=== PATIENT | male | born 1970 | race Caucasian/White ===

== ENCOUNTER 2018-12-20 15:10 | Inpatient (IN) | payer MEDICAID ==
[~2018-12-20] VITALS: Ht 172.7 cm; Wt 93.5 kg
[2018-12-20 15:52] LABS: Basophils # (auto) 0.2 uL; Basophils % (auto) 2.5 % (0.0-2.0); Eosinophils # (auto) 0.1 uL; Eosinophils % (auto) 0.8 % (0.0-7.0); Hematocrit 42.9 % (41.0-53.0); Hemoglobin 14.3 g/dL (13.5-17.5); Lymphocytes # (auto) 1.3 uL; Lymphocytes % (auto) 15.6 % (10.0-50.0); Mean Corpuscular Hemoglobin 29.1 pg (28.0-32.0); Mean Corpuscular Hgb Conc. 33.3 g/dL (32.0-36.0); Mean Corpuscular Volume 87.6 fL (80.0-100.0); Monocytes # (auto) 0.7 uL; Monocytes % (auto) 8.2 % (0.0-12.0); Neutrophils % (auto) 72.9 % (37.0-80.0); Platelet Count (auto) 201 10^3/uL (140-450); Red Blood Cells 4.89 10^6/uL (4.5-5.90); Red Cell Distribution Width 15.1 % (11.8-14.3); White Blood Cell 8.2 10^3/uL (4.4-10.8)
[2018-12-20 16:08] LABS: BUN/Creatinine Ratio 15.9; Calcium 8.4 mg/dL (8.5-10.1); Potassium 4.3 mmol/L (3.5-5.1)
[2018-12-20 16:13] LABS: Bilirubin, Total 1.6 mg/dL (0.2-1.0); Total Protein 5.9 g/dL (6.4-8.2)
[2018-12-20 16:16] LABS: INR 1.35 (0.9-1.15); Partial Thromboplastin Time 26.7 sec (23.64-32.05)
[2018-12-20] MEDS ORDERED: cloNIDine HCL 0.1 MG TAB PO ONE (16:30)
[2018-12-20] MEDS ORDERED: SODIUM CHLORIDE 0.9% 1,000 ML IV ONE (16:59)
[2018-12-20] MEDS ORDERED: SPIRONOLACTONE 25 MG TAB PO ONE (17:00)
[2018-12-20] MEDS ORDERED: FUROSEMIDE 40 MG/4 ML VIAL IV ONE (17:00)
[2018-12-20] MEDS ORDERED: FUROSEMIDE 100 MG/10ML VIAL IV ONE (19:00)
[2018-12-20] MEDS ORDERED: LABETALOL HCL 5 MG/ML ML 20ML VIAL IV ONE (20:45)
[2018-12-20] MEDS ORDERED: ONDANSETRON HCL 4 MG/2 ML VIAL IV PRN (21:15)
[2018-12-20] MEDS ORDERED: ACETAMINOPHEN 325 MG TAB PO PRN (21:15)
[2018-12-20] MEDS: FAMOTIDINE 20 MG TAB PO SCH (22:00)
[2018-12-20] MEDS: CARVEDILOL 3.125 MG TAB PO SCH (22:00)
[2018-12-20] MEDS: ATORVASTATIN 20 MG TAB PO SCH (22:00)
[2018-12-20] MEDS ORDERED: MORPHINE SULF INJ 2 MG/ML SYRINGE 1ML IV PRN (22:15)
[2018-12-20] MEDS ORDERED: NITROGLYCERIN 0.4 MG SL TAB SL PRN (22:15)
[2018-12-20 23:32] VITALS: BP 149/102
--- NOTE | 2018-12-20 23:32 | NUR ---
Telemetry admit from ER JOHNMARVIN admitted to Telemetry unit. Patient oriented to MAGGIE BRADLEY RN primary RN, unit telemetry, room 296, bed A, and unit policies regarding patient care and visiting hours. Patient now on continuous telemetry monitoring, tele box #[id number] and telemetry reading on arrival to unit is normal sinus rhythm in the 80s. Patient placed on bedside oxygen, weighed by bedscale and encouraged to call if they need something. All questions and concerns addressed, patient verbalized understanding.
--- NOTE | 2018-12-20 23:50 | NUR ---
Patient refused denney catheter insertion that was ordered for accurate output monitoring. Gave patient a urinal and explained the importance of accurate monitoring of urine output. Patient verbalized understanding. Notified LICENSED REACTOR OPERATOR of necessity for patient to use of urinal for accurate urine output monitoring. Will notify MD of patient's refusal for denney catheter insertion.
[2018-12-21 04:42] LABS: Basophils # (auto) 0.2 uL; Basophils % (auto) 3.2 % (0.0-2.0); Eosinophils # (auto) 0.2 uL; Eosinophils % (auto) 2.8 % (0.0-7.0); Hematocrit 42.4 % (41.0-53.0); Hemoglobin 14.4 g/dL (13.5-17.5); Lymphocytes # (auto) 1.3 uL; Lymphocytes % (auto) 17.8 % (10.0-50.0); Mean Corpuscular Hemoglobin 29.6 pg (28.0-32.0); Mean Corpuscular Hgb Conc. 33.9 g/dL (32.0-36.0); Mean Corpuscular Volume 87.2 fL (80.0-100.0); Monocytes # (auto) 0.8 uL; Monocytes % (auto) 10.7 % (0.0-12.0); Neutrophils # (auto) 4.9 uL; Neutrophils % (auto) 65.5 % (37.0-80.0); Nucleated Red Blood Cells % 0.1 %; Platelet Count (auto) 187 10^3/uL (140-450); Red Blood Cells 4.86 10^6/uL (4.5-5.90); White Blood Cell 7.5 10^3/uL (4.4-10.8)
[2018-12-21 05:00] VITALS: BP 149/103
[2018-12-21 05:08] LABS: Calcium 8.2 mg/dL (8.5-10.1)
[2018-12-21 05:10] LABS: BUN/Creatinine Ratio 16.6
[2018-12-21] MEDS ORDERED: FUROSEMIDE 20 MG/2 ML VIAL IV SCH (06:00)
--- NOTE | 2018-12-21 07:30 | NUR ---
SHIFT CLOSING NOTE Endorsed care of patient to day shift, NEO Ivey.
--- NOTE | 2018-12-21 07:40 | NUR ---
Opening Shift Note Assumed care of patient, asleep but easily aroused. No S/S of distress/SOB or pain. Call light placed within reach and patient was instructed on POC and to call for assist PRN, will continue to monitor for changes Q1hr and PRN.
[2018-12-21 09:00] VITALS: BP 164/118
[2018-12-21] MEDS: CARVEDILOL 3.125 MG TAB PO SCH ×2 (09:24→21:28)
[2018-12-21] MEDS: FAMOTIDINE 20 MG TAB PO SCH ×2 (09:25→21:28)
[2018-12-21] MEDS: amLODIPine BESYLATE 5 MG TAB PO SCH (09:25)
[2018-12-21] MEDS: ASPirin 81 mg TAB PO SCH (09:25)
[2018-12-21] MEDS ORDERED: cloNIDine HCL 0.1 MG TAB PO PRN (10:30)
[2018-12-21] MEDS: FUROSEMIDE 20 MG/2 ML VIAL IV SCH ×2 (10:49→17:59)
--- NOTE | 2018-12-21 10:57 | NUR ---
AMA - smoke Patient signed AMA to go smoke.
--- NOTE | 2018-12-21 11:25 | NUR ---
On Unit Patient brought back to unit in wheelchair. States that he felt nauseous as he walked downstairs and it kept getting worst, he kept walking to see if it would go away but it didn't so he found a stone to sit on.
[2018-12-21 12:46] LABS: Alcohol, Urine < 3.0 mg/dL (0-5); Amphetamine Screen, Urine POSITIVE (NEGATIVE); Barbiturate Scree,Urine NEGATIVE (NEGATIVE); Benzodiazephine Screen, Urine NEGATIVE (NEGATIVE); Cannabinoid Screen, Urine POSITIVE (NEGATIVE); Cocaine Screen, Urine NEGATIVE (NEGATIVE); Opiate Scree,Urine NEGATIVE (NEGATIVE); Phencyclidine Screen, Urine NEGATIVE (NEGATIVE)
[2018-12-21 13:00] VITALS: BP 155/114
[2018-12-21 13:00] LABS: Urine Bacteria NONE SEEN /hpf (None Seen); Urine Blood Negative /uL (Negative); Urine Specific Gravity 1.007 (1.001-1.035); Urine WBC 125 /hpf (0 - 3); Urine WBC Clumps PRESENT /hpf (None Seen)
[2018-12-21] MEDS: LABETALOL HCL 5 MG/ML ML 20ML VIAL IV PRN (14:39)
[2018-12-21 16:54] VITALS: BP 165/117
[2018-12-21] MEDS: cloNIDine HCL 0.1 MG TAB PO PRN (18:04)
--- NOTE | 2018-12-21 19:24 | NUR ---
Opening Shift Note Assumed care of patient, awake and alert. No S/S of distress/SOB or pain. Instructed on POC and to call for assist PRN, will continue to monitor for changes Q1hr and PRN.
[2018-12-21] MEDS: ATORVASTATIN 20 MG TAB PO SCH (21:26)
[2018-12-21 22:00] VITALS: BP 147/119
[2018-12-21 22:28] VITALS: BP 159/108
--- NOTE | 2018-12-21 23:30 | NUR ---
Rounds Patient sleeping. No S/S of distress/SOB or pain. Will continue to monitor changes q1hr and PRN.
--- NOTE | 2018-12-22 03:30 | NUR ---
Rounds Patient sleeping. No S/S of distress/SOB or pain. Will continue to monitor changes q1hr and PRN.
[2018-12-22 05:23] VITALS: BP 161/96
[2018-12-22] MEDS: FUROSEMIDE 20 MG/2 ML VIAL IV SCH ×2 (06:26→17:48)
[2018-12-22 06:30] LABS: Basophils # (auto) 0.2 uL; Basophils % (auto) 2.9 % (0.0-2.0); Eosinophils # (auto) 0.2 uL; Eosinophils % (auto) 2.7 % (0.0-7.0); Lymphocytes # (auto) 1.4 uL; Lymphocytes % (auto) 17.5 % (10.0-50.0); Mean Corpuscular Hemoglobin 29.6 pg (28.0-32.0); Mean Corpuscular Volume 86.8 fL (80.0-100.0); Monocytes # (auto) 0.7 uL; Monocytes % (auto) 8.5 % (0.0-12.0); Neutrophils # (auto) 5.4 uL; Neutrophils % (auto) 68.4 % (37.0-80.0); Platelet Count (auto) 174 10^3/uL (140-450); Red Blood Cells 5.07 10^6/uL (4.5-5.90); Red Cell Distribution Width 15.3 % (11.8-14.3); White Blood Cell 7.8 10^3/uL (4.4-10.8)
[2018-12-22 06:33] LABS: Albumin 2.7 g/dL (3.4-5.0); BUN/Creatinine Ratio 20.1; Calcium 8.1 mg/dL (8.5-10.1); Magnesium 1.7 mg/dL (1.6-2.6)
[2018-12-22 06:36] LABS: Bilirubin, Total 1.4 mg/dL (0.2-1.0); Total Protein 5.6 g/dL (6.4-8.2)
--- NOTE | 2018-12-22 07:30 | NUR ---
SHIFT CLOSING NOTE. ENDORSED CARE OF PATIENT TO DAY SHIFT, NEO DOSS.
[2018-12-22] MEDS ORDERED: ADENOSINE 79 MG in GIVE UN-DILUTED 0 ML IV STA (08:23)
[2018-12-22 09:00] VITALS: BP 168/119
[2018-12-22] MEDS: FAMOTIDINE 20 MG TAB PO SCH ×2 (10:16→22:28)
[2018-12-22] MEDS: ASPirin 81 mg TAB PO SCH (10:16)
[2018-12-22] MEDS: CARVEDILOL 3.125 MG TAB PO SCH ×2 (10:17→22:30)
[2018-12-22] MEDS: amLODIPine BESYLATE 5 MG TAB PO SCH (10:17)
[2018-12-22] MEDS: cloNIDine HCL 0.1 MG TAB PO PRN (12:45)
[2018-12-22 13:00] VITALS: BP 171/97
[2018-12-22] MEDS ORDERED: hydrALAZINE HCL 20 MG/ML VL IV PRN (13:45)
[2018-12-22] MEDS ORDERED: CARVEDILOL 3.125 MG TAB PO ONE (14:00)
[2018-12-22] MEDS ORDERED: SACUBITRIL-VALSARTAN 24mg/26mg TAB PO ONE (14:00)
[2018-12-22 16:46] VITALS: BP 161/111
[2018-12-22] MEDS: IPRATROPIUM BROM 0.5 MG/2.5ML INH SOL NEB SCH ×2 (19:57→23:07)
[2018-12-22] MEDS: ALBUTEROL SULF 2.5 MG/0.5ML(0.5%) NEB SOLN NEB SCH ×2 (19:57→23:07)
[2018-12-22 22:28] VITALS: BP 145/100
[2018-12-22] MEDS: ATORVASTATIN 20 MG TAB PO SCH (22:29)
[2018-12-22] MEDS: SACUBITRIL-VALSARTAN 24mg/26mg TAB PO SCH (22:29)
[2018-12-22 23:16] VITALS: BP 145/100
--- NOTE | 2018-12-23 | NUR ---
Rounds Patient awake and alert. No S/S of distress/SOB or pain. Will continue to monitor changes q1hr and PRN.
[2018-12-23] MEDS: IPRATROPIUM BROM 0.5 MG/2.5ML INH SOL NEB SCH ×6 (02:00→22:00)
[2018-12-23] MEDS: ALBUTEROL SULF 2.5 MG/0.5ML(0.5%) NEB SOLN NEB SCH ×6 (02:00→22:00)
--- NOTE | 2018-12-23 04:11 | NUR ---
Rounds Patient sleeping. No S/S of distress/SOB or pain. Will continue to monitor changes q1hr and PRN.
[2018-12-23 05:13] VITALS: BP 141/89
[2018-12-23] MEDS: FUROSEMIDE 20 MG/2 ML VIAL IV SCH ×2 (05:52→17:44)
[2018-12-23 06:17] LABS: Basophils # (auto) 0.1 uL; Eosinophils # (auto) 0.3 uL; Eosinophils % (auto) 4.7 % (0.0-7.0); Hematocrit 44.9 % (41.0-53.0); Hemoglobin 14.9 g/dL (13.5-17.5); Lymphocytes # (auto) 1.8 uL; Mean Corpuscular Hemoglobin 29.6 pg (28.0-32.0); Mean Corpuscular Hgb Conc. 33.2 g/dL (32.0-36.0); Monocytes # (auto) 0.6 uL; Monocytes % (auto) 8.5 % (0.0-12.0); Neutrophils # (auto) 4.1 uL; Neutrophils % (auto) 59.8 % (37.0-80.0); Nucleated Red Blood Cells % 0.1 %; Platelet Count (auto) 179 10^3/uL (140-450); Red Blood Cells 5.04 10^6/uL (4.5-5.90); Red Cell Distribution Width 15.3 % (11.8-14.3); White Blood Cell 6.9 10^3/uL (4.4-10.8)
[2018-12-23 06:43] LABS: Potassium 3.7 mmol/L (3.5-5.1)
[2018-12-23 06:52] LABS: Albumin 2.4 g/dL (3.4-5.0); BUN/Creatinine Ratio 22.4; Calcium 7.5 mg/dL (8.5-10.1); Magnesium 1.8 mg/dL (1.6-2.6)
[2018-12-23 06:54] LABS: Bilirubin, Total 1.1 mg/dL (0.2-1.0); Total Protein 5.1 g/dL (6.4-8.2)
--- NOTE | 2018-12-23 07:38 | NUR ---
SHIFT CLOSING NOTE ENDORSED CARE OF PATIENT TO DAY SHIFT, NEO PETERSON.
--- NOTE | 2018-12-23 07:50 | NUR ---
OPENING SHIFT NOTE ASSUMED CARE OF PATIENT. PATIENT AWAKE AND ALERT SITTING UP IN BED. NO S/S OF DISTRESS OR SOB NOTED. BED IN LOWEST LOCKED POSITION, CALL LIGHT WITHIN REACH. REVIEWED POC WITH PATIENT AND INSTRUCTED TO CALL FOR ASSIST NEEDED. WILL CONTINUE TO MONITOR.
[2018-12-23 09:00] VITALS: BP 148/92
[2018-12-23] MEDS: CARVEDILOL 3.125 MG TAB PO SCH ×2 (10:08→22:11)
[2018-12-23] MEDS: FAMOTIDINE 20 MG TAB PO SCH ×2 (10:09→22:11)
[2018-12-23] MEDS: amLODIPine BESYLATE 5 MG TAB PO SCH (10:09)
[2018-12-23] MEDS: SACUBITRIL-VALSARTAN 24mg/26mg TAB PO SCH ×2 (10:10→22:11)
[2018-12-23] MEDS: ASPirin 81 mg TAB PO SCH (10:11)
[2018-12-23 12:30] VITALS: BP 135/83
[2018-12-23 17:00] VITALS: BP 128/82
--- NOTE | 2018-12-23 20:46 | NUR ---
IV removal IV DC'd with clean sterile technique, catheter fully intact. Pressure dressing applied to site. Patient tolerated well. NOTE: PT STATED HE WANTS THE RIGHT AC IV OUT, IT IS HURTIING TOO MUCH.
[2018-12-23] MEDS: ATORVASTATIN 20 MG TAB PO SCH (22:11)
--- NOTE | 2018-12-23 22:42 | NUR ---
RT NOTE WOKE PT UP TO GIVE HIM 2200 BREATHING TX PT REFUSED. ASKED ME TO COME BACK FOR 0200 TX. NO RESP DISTRESS NOTED AT THIS TIME.
[2018-12-23 23:32] VITALS: BP 132/85
--- NOTE | 2018-12-24 | NUR ---
Transfer of care and report received from NEO Lee. Pt sleeping soundly; resps even without s/sx distress. Pt relaxed and had requested not to be awakened for MN POC BG. Color good. Cont on tele #[phone] in SR.
[2018-12-24] MEDS: ALBUTEROL SULF 2.5 MG/0.5ML(0.5%) NEB SOLN NEB SCH ×6 (02:00→22:00)
[2018-12-24] MEDS: IPRATROPIUM BROM 0.5 MG/2.5ML INH SOL NEB SCH ×6 (02:00→22:00)
--- NOTE | 2018-12-24 02:08 | NUR ---
RT NOTE WENT TO GIVE 0200 BREATHING TX PT WAS SLEEPING WOKE PT UP AND PT REFUSED BREATHING TREATMENT. NO DISTRESS NOTED PT SLEEPING COMFORTABLY
[2018-12-24 05:38] VITALS: BP 146/78
[2018-12-24] MEDS: FUROSEMIDE 20 MG/2 ML VIAL IV SCH (07:05)
--- NOTE | 2018-12-24 07:32 | NUR ---
OPENING SHIFT NOTE ASSUMED CARE OF PATIENT. PATIENT RESTING COMFORTABLY WITH EYES CLOSED. NO S/S OF DISTRESS OR SOB NOTED. BED IN LOWEST LOCKED POSITION, CALL LIGHT WITHIN REACH. WILL CONTINUE TO MONITOR.
[2018-12-24 07:36] LABS: BUN/Creatinine Ratio 27.6; Calcium 7.7 mg/dL (8.5-10.1); Potassium 3.7 mmol/L (3.5-5.1)
[2018-12-24 08:41] VITALS: BP 148/92
[2018-12-24] MEDS: CARVEDILOL 3.125 MG TAB PO SCH ×2 (09:48→21:34)
[2018-12-24] MEDS: FAMOTIDINE 20 MG TAB PO SCH ×2 (09:49→21:33)
[2018-12-24] MEDS: ASPirin 81 mg TAB PO SCH (09:49)
[2018-12-24] MEDS: amLODIPine BESYLATE 5 MG TAB PO SCH (09:49)
[2018-12-24] MEDS: SACUBITRIL-VALSARTAN 24mg/26mg TAB PO SCH ×2 (09:49→21:34)
[2018-12-24 13:00] VITALS: BP 136/84
[2018-12-24 17:00] VITALS: BP 132/66
--- NOTE | 2018-12-24 18:40 | NUR ---
END OF SHIFT NOTE PATIENT AWAKE AND ALERT SITTING UP IN BED. NO S/S OF DISTRESS OR SOB NOTED. BED IN LOWEST LOCKED POSITION, CALL LIGHT WITHIN REACH. WILL ENDORSE CARE TO NOC RN.
--- NOTE | 2018-12-24 19:21 | NUR ---
Respiratory note: PT REFUSING BREATHING TX AT THIS TIME. NO RESP DISTRESS NOTED. SPO2 ON RA 93%, HR 75, RR 20. BS DIM T/O. LET PT KNOW I WILL BE BACK TO GIVE 2200 TX AT THIS TIME.
--- NOTE | 2018-12-24 19:30 | NUR ---
Opening Shift Assumed care of patient, awake and alert. No S/S of distress/SOB or pain. Insructed on POC and to callfor assist PRN, will continue to monitor for changes Q1hr and PRN. Patient currently wearing life vest. Fall and safety precautions in place. Call light within reach.
--- NOTE | 2018-12-24 20:00 | NUR ---
CONSENTS Educated patient that in preparation for scheduled procedure tomorrow 12/25/18, patient will be NPO status at midnight and CHG bath and linen change will be done tomorrow morning approximately 0600. Patient verbalized understanding and agreement. Patient was asked if he understood risks and benefits of procedure and is comfortable signing consents at this time. Patient stated he is unaware of risks and benefits and requests to speak with MD. Consents not signed at this time. Will inform day shift RN. Will continue to monitor
[2018-12-24] MEDS: ATORVASTATIN 20 MG TAB PO SCH (21:33)
[2018-12-24] MEDS: TEMAZEPAM 15 MG CAP PO PRN (21:34)
--- NOTE | 2018-12-24 22:17 | NUR ---
Respiratory note: PT REFUSING BREATHING TX AT THIS TIME. NO RESP DISTRESS NOTED. SPO2 ON RA 92%, HR 82, RR 20. BS DIM T/O. LET PT KNOW I WILL BE BACK TO GIVE 0200 TX AT THAT TIME.
[2018-12-24 22:21] VITALS: BP 139/82
--- NOTE | 2018-12-25 | NUR ---
NPO Bedside table cleared of food and drink. Will continue to monitor
[2018-12-25] MEDS: IPRATROPIUM BROM 0.5 MG/2.5ML INH SOL NEB SCH ×7 (02:00→22:24)
[2018-12-25] MEDS: ALBUTEROL SULF 2.5 MG/0.5ML(0.5%) NEB SOLN NEB SCH ×7 (02:00→22:24)
--- NOTE | 2018-12-25 02:39 | NUR ---
Respiratory note: PT HAS REFUSED LAST MED NEB TX FOR TONIGHT. NO RESP DISTRESS NOTED. PT WANTS TO SLEEP. SPO2 ON RA 94%, HR 80, RR 20. BS DIM T/O. INFORMED PT TO CALL IF PT IS REQUIRING TX AT A LATER TIME. WILL CONTINUE TO MONITOR PT T/O SHIFT.
[2018-12-25 05:39] VITALS: BP 146/93
--- NOTE | 2018-12-25 06:00 | NUR ---
CHG Patient was instructed on how to wipe himself using CHG wipes and importance of using before procedure. Patient verbalized understanding and agreement. Patient ambulated himself with steady gait to restroom with CHG wipes. Complete linen change done and gown changed. Patient ambulated himself back to bed, no distress noted. Will continue to monitor
[2018-12-25 07:28] LABS: INR 1.19 (0.9-1.15)
[2018-12-25 07:33] LABS: Calcium 8.3 mg/dL (8.5-10.1); Potassium 4.2 mmol/L (3.5-5.1)
[2018-12-25 08:00] VITALS: BP 160/98
[2018-12-25 08:40] VITALS: BP 160/98
--- NOTE | 2018-12-25 09:30 | NUR ---
CALLED RECRUITING SPECIALIST TO FIND OUT WHAT TIME PATIENT IS GOING DOWN TO RECRUITING SPECIALIST. KRISTI BOBBY PATIENT IS GOING LATER THIS AFTERNOON AND CAN HAVE A LIGHT BREAKFAST. BREAKFAST ALREADY PAST SO PROVIDED PATIENT WITH JELLO X 2 AND HALF A CUP OF WATER WITH MORNING MEDICATIONS.
--- NOTE | 2018-12-25 09:34 | NUR ---
Opening Shift Note Assumed care of patient, awake and alert. No S/S of distress/SOB or pain. Instructed on POC and to call for assist PRN, will continue to monitor for changes Q1hr and PRN. Bed locked in lowest position with two side rails up and call light in reach.
[2018-12-25] MEDS: FAMOTIDINE 20 MG TAB PO SCH ×2 (09:52→21:44)
[2018-12-25] MEDS: FUROSEMIDE 20 MG/2 ML VIAL IV SCH (09:52)
[2018-12-25] MEDS: SACUBITRIL-VALSARTAN 24mg/26mg TAB PO SCH ×2 (09:52→21:49)
[2018-12-25] MEDS: amLODIPine BESYLATE 5 MG TAB PO SCH (09:52)
[2018-12-25] MEDS: CARVEDILOL 3.125 MG TAB PO SCH ×2 (09:53→21:46)
[2018-12-25] MEDS: ASPirin 81 mg TAB PO SCH (09:53)
[2018-12-25 11:24] LABS: Hepatitis B Surface Antibody Negative
[2018-12-25 11:54] LABS: Hepatitis A Total Antibody Negative
[2018-12-25 12:30] VITALS: BP 132/83
--- NOTE | 2018-12-25 12:30 | NUR ---
DR ROBERT JUARES
[2018-12-25 12:55] LABS: Hepatitis B Core Total AB Negative; Hepatitis B Surface Antigen Negative (Negative)
[2018-12-25 12:56] LABS: Hepatitis C Antibody Negative (Negative)
--- NOTE | 2018-12-25 13:30 | NUR ---
PATIENT TAKEN DOWN TO ENGINEERING CLERK.
--- NOTE | 2018-12-25 14:15 | NUR ---
Respiratory note: MED NEB TX NOT ADMINISTERED DUE TO PT BEING AT PROCEDURE.
[2018-12-25] MEDS ORDERED: LIDOCAINE 2%HCL (LOCAL ANESTH.) INJ 20ML MDV ONE (15:07)
[2018-12-25] MEDS ORDERED: ANGIOMAX 250 MG VIAL IV ONE (15:16)
[2018-12-25] MEDS ORDERED: MIDAZOLAM HCL 1MG/1ML-2 ML VIAL ONE (15:16)
[2018-12-25] MEDS ORDERED: SODIUM CHL 0.9% 50 ML ONE (15:16)
[2018-12-25] MEDS ORDERED: fentaNYL CITRATE 100 MCG/2 ML VL ONE (15:16)
[2018-12-25] MEDS ORDERED: IOHEXOL 350 MG/ML 100ML IJ ONE ×2 (15:17→16:25)
[2018-12-25] MEDS ORDERED: CLOPIDOGREL 300 MG TAB ONE (16:40)
[2018-12-25] MEDS ORDERED: LABETALOL HCL 5 MG/ML ML 20ML VIAL IV ONE (16:50)
[2018-12-25] MEDS ORDERED: ONDANSETRON HCL 4 MG/2 ML VIAL ONE (16:57)
[2018-12-25] MEDS: LABETALOL HCL 5 MG/ML ML 20ML VIAL IV PRN (17:16)
--- NOTE | 2018-12-25 17:33 | NUR ---
RECEIVED REPORT FROM ANTHONY NATHAN WILL AWAIT PATIENT.
--- NOTE | 2018-12-25 17:35 | NUR ---
RECEIVED PATIENT TO THE FLOOR NO SIGNS AND SYMPTOMS OF DISTRESS NOTED. PATIENT DRESSING C/D/I. PATIENT PLACED IN [place] TO ACCOMMODATE EATING. PATIENT EDUCATED ON THE NEED TO LAY FLAT. PER JAC IN CANDY SEPARATOR HARD PATIENT HAS AN UPTIME OF 1900
--- NOTE | 2018-12-25 18:34 | NUR ---
PER DR JONES GET A LIST OF HOME MEDICATIONS FOR TOMORROWS DISCHARGE.
--- NOTE | 2018-12-25 18:37 | NUR ---
PATIENTS INCISION SITE STILL C/D/I PER PATIENT HE DOES NOT TAKE ANY HOME MEDICATIONS.
--- NOTE | 2018-12-25 19:30 | NUR ---
Opening Shift Assumed care of patient, awake and alert. No S/S of distress/SOB or pain. Insructed on POC and to callfor assist PRN, will continue to monitor for changes Q1hr and PRN. Fall and safety precautions in place. Call light within reach.
--- NOTE | 2018-12-25 20:00 | NUR ---
RIGHT GROIN Per day shift report, patient able to sit up at 90 degree angle at 1900. Upon entering room, found patient sitting up in bed, no distress noted. Dressing to right groin assessed. Pressure dressing to right groin clean, dry, and intact. No signs of hematoma noted upon palpation, no bruising noted around site. Patient denies pain to site. Will continue to monitor
[2018-12-25] MEDS: ATORVASTATIN 20 MG TAB PO SCH (21:45)
[2018-12-25] MEDS: TEMAZEPAM 15 MG CAP PO PRN (21:46)
--- NOTE | 2018-12-25 22:00 | NUR ---
RIGHT GROIN Assessed right groin at this time. Pressure dressing in place, clean, dry, and intact. No signs hematoma noted upon palpation, no bruising noted around site. Instructed patient to self-massage around site to prevent complications/hematoma. Patient verbalized understanding of teaching and returned demonstration. Right posterior tibialis pulse present, 2+, lower extremity warm and dry to touch. Patient denies pain at this time. No distress noted. Will continue to monitor
[2018-12-25 23:06] VITALS: BP 155/112
[2018-12-26] MEDS: IPRATROPIUM BROM 0.5 MG/2.5ML INH SOL NEB SCH ×4 (02:05→14:00)
[2018-12-26] MEDS: ALBUTEROL SULF 2.5 MG/0.5ML(0.5%) NEB SOLN NEB SCH ×4 (02:05→14:00)
[2018-12-26 03:23] VITALS: BP 155/112
[2018-12-26 05:39] VITALS: BP 139/84
--- NOTE | 2018-12-26 05:40 | NUR ---
RIGHT GROIN/PAIN Assessed right groin at this time. Pressure dressing in place, clean, dry, and intact. No signs hematoma noted upon palpation, no bruising noted around site. Instructed patient to self-massage around site to prevent complications/hematoma. Patient verbalized understanding of teaching and returned demonstration. Right posterior tibialis pulse present, 2+, lower extremity warm and dry to touch. Patient complaining of pain 9/10 to right groin, medicated with PRN pain medication (see emar) and given hot pack. Will continue to monitor
[2018-12-26 08:00] VITALS: BP 157/105
[2018-12-26 08:30] VITALS: BP 153/102
[2018-12-26] MEDS: FUROSEMIDE 20 MG/2 ML VIAL IV SCH (09:48)
[2018-12-26] MEDS: FAMOTIDINE 20 MG TAB PO SCH (09:50)
[2018-12-26] MEDS: ASPirin 81 mg TAB PO SCH (09:50)
[2018-12-26] MEDS: SACUBITRIL-VALSARTAN 24mg/26mg TAB PO SCH (09:50)
[2018-12-26] MEDS: CARVEDILOL 3.125 MG TAB PO SCH (09:50)
[2018-12-26] MEDS: amLODIPine BESYLATE 5 MG TAB PO SCH (09:50)
[2018-12-26] MEDS ORDERED: CLOPIDOGREL BISULFATE 75 MG TAB PO SCH (10:00)
--- NOTE | 2018-12-26 12:23 | NUR ---
D/C Planning Per consult for safety evaluation, medication management and help with accessing food. Contacted and faxed medical records to [facility] and [facility]. Per Lucero from [facility] Ph:) Fax:) Pt has been accepted and service to start within 48hrs upon d/c day. Advised Systems Administration Analyst Christine for authorization. Addendum: 12/26/18 at 1231 by JACQUES FLOWERS Amended: Links added.
[2018-12-26 12:30] VITALS: BP 150/73
[2018-12-26] MEDS ORDERED: CLOP75TA28 PO (12:49)
[2018-12-26] MEDS ORDERED: AML5T PO (12:49)
[2018-12-26] MEDS ORDERED: LOSA-69 PO (12:49)
[2018-12-26] MEDS ORDERED: ASPI81CH43 PO (12:49)
[2018-12-26] MEDS ORDERED: ATOR20TA50 PO (12:49)
[2018-12-26] MEDS ORDERED: CAR3125T PO (12:49)
[2018-12-26] MEDS ORDERED: LEVO25TA6 PO (12:52)
--- NOTE | 2018-12-26 12:52 | NUR ---
Estimated needs based on AJBW 75.9 kg-weight maintenance factors 6677-8172 kcal (23-25 kcal/kg) 79-91 g protein (1.0-1.2 g/kg) Addendum: 12/26/18 at [address] Amended: Links added.
--- NOTE | 2018-12-26 13:12 | NUR ---
I faxed home health order to [employer], requesting authorization for [facility].
--- NOTE | 2018-12-26 14:00 | NUR ---
Respiratory note: PT SLEEPING AND REFUSED Q4 MED NEB TX. PT STATED HE WANTED TO BE LEFT ALONE. WILL INFORM RN OF REFUSAL.
--- NOTE | 2018-12-26 16:52 | NUR ---
Discharge instructions given as ordered. Encourage to follow up with PMD as instructed. All questions and concerns addressed. Patient verbalized understanding. Medication reconciliation form completed and copy given to patient. No Home medications held in Pharmacy and none to be returned to patient, and needed vaccines given. IV removed with catheter intact, pressure dressing applied. Telemetry unit returned to ICU. Patient taken to vehicle via wheelchair with all personal belongings, accompanied by staff and family member. No distress noted at time of departure.
--- NOTE | 2018-12-27 10:49 | NUR ---
assessment Patient has no post discharge needs identified. Addendum: 12/27/18 at 1049 by Nat Morocho SS Amended: Links added. Addendum: 12/27/18 at 1050 by Nat Morocho SS late entry note from 12/26/18
== END 2018-12-26 16:00 | disposition home health service (06) | DRG 175 ==
LOC: EDBD 15:10 → ER 15:10 → TELE 15:11 → TELE-WESTW 23:31
PROVIDERS: ADMIT Nurse Practitioner; ATTEND Internal Medicine
PROC: 027034Z Dilation of Coronary Artery, One Artery with Drug-eluting Intraluminal Device, Percutaneous Approach (ICD-10-PCS; principal; 2018-12-25)
PROC: B2111ZZ Fluoroscopy of Multiple Coronary Arteries using Low Osmolar Contrast (ICD-10-PCS; 2018-12-25)
DX: I13.0 Hypertensive heart and chronic kidney disease with heart failure and stage 1 through stage 4 chronic kidney disease, or unspecified chronic kidney disease (principal); J91.8 Pleural effusion in other conditions classified elsewhere; E44.0 Moderate protein-calorie malnutrition; R18.8 Other ascites; I50.41 Acute combined systolic (congestive) and diastolic (congestive) heart failure; N17.9 Acute kidney failure, unspecified; N18.3 Chronic kidney disease, stage 3 (moderate); I25.9 Chronic ischemic heart disease, unspecified; K40.90 Unilateral inguinal hernia, without obstruction or gangrene, not specified as recurrent; E03.9 Hypothyroidism, unspecified; F12.90 Cannabis use, unspecified, uncomplicated; F15.10 Other stimulant abuse, uncomplicated; F17.210 Nicotine dependence, cigarettes, uncomplicated; Z68.31 Body mass index [BMI] 31.0-31.9, adult; Z71.51 Drug abuse counseling and surveillance of drug abuser; Z91.19 Patient's noncompliance with other medical treatment and regimen; Z71.6 Tobacco abuse counseling
CPT/HCPCS: 36415; 71045; 74176; 78452; 80048; 80053; 80061; 80307; 81001; 83735; 83880; 84443; 84484; 85025; 85610; 85730; 86704; 86706; 86708; 86803; 86850; 86900; 86901; 87340; 92928; 93005; 93017; 93306; 93454; 94640; 96374; 96375; G0378; J0153; J2250; J2405

== ENCOUNTER 2019-07-04 07:48 | Inpatient (IN) | payer MEDICAID ==
[~2019-07-04] VITALS: Ht 182.9 cm; Wt 65.1 kg
[~2019-07-04 07:48] MED LIST: AML5T PO; ASPI81CH43 PO; ATOR20TA50 PO; CAR3125T PO; CLOP75TA28 PO; LEVO25TA6 PO; LOSA-69 PO
[2019-07-04] MEDS ORDERED: SODIUM CHLORIDE 0.9% 1,000 ML IVB ONE (08:10)
[2019-07-04] MEDS ORDERED: KETOROLAC TROMETH 30 MG/ML 1ML VIAL ONE (08:13)
[2019-07-04] MEDS ORDERED: PROMETHAZINE HCL 25 MG/ML 1ML IV ONE (08:15)
[2019-07-04] MEDS ORDERED: MORPHINE SULF INJ 2 MG/ML SYRINGE 1ML IV ONE (08:15)
[2019-07-04] MEDS ORDERED: KETOROLAC TROMETH 15 mg/ml 1ML VL IV ONE (08:15)
[2019-07-04 09:29] LABS: Basophils # (auto) 0.1 10 ^3/uL (0-0.2); Eosinophils # (auto) 0 10 ^3/uL (0-0.8); Lymphocytes # (auto) 1.4 10 ^3/uL (0.4-5.4); Lymphocytes % (auto) 5.9 % (10.0-50.0); White Blood Cell 22.9 10^3/uL (4.4-10.8)
[2019-07-04 09:30] LABS: Basophils % (auto) 0.5 % (0.0-2.0); Hematocrit 54.1 % (41.0-53.0); Hemoglobin 18.7 g/dL (13.5-17.5); Mean Corpuscular Hemoglobin 30.4 pg (28.0-32.0); Mean Corpuscular Hgb Conc. 34.5 g/dL (32.0-36.0); Monocytes # (auto) 1.7 10 ^3/uL (0-1.3); Monocytes % (auto) 7.6 % (0.0-12.0); Neutrophils # (auto) 19.7 10 ^3/uL (1.6-8.6); Nucleated Red Blood Cells % 0.3 %; Platelet Count (auto) 215 10^3/uL (140-450); Red Blood Cells 6.15 10^6/uL (4.5-5.90); Red Cell Distribution Width 13.3 % (11.8-14.3)
[2019-07-04] MEDS ORDERED: hydrALAZINE HCL 20 MG/ML VL IV ONE (09:30)
[2019-07-04] MEDS ORDERED: LABETALOL HCL 5 MG/ML 4ML SYRINGE IV ONE ×2 (09:30→13:30)
[2019-07-04 09:48] LABS: Albumin 3.9 g/dL (3.4-5.0); Calcium 9.4 mg/dL (8.5-10.1)
[2019-07-04 09:54] LABS: BUN/Creatinine Ratio 22.8; Bilirubin, Total 2.2 mg/dL (0.2-1.0); Total Protein 8.1 g/dL (6.4-8.2)
[2019-07-04 09:56] LABS: Potassium 2.7 mmol/L (3.5-5.1)
[2019-07-04] MEDS ORDERED: POTASSIUM EFFERVESENT TAB 25 MEQ PO ONE (10:00)
[2019-07-04 10:52] LABS: Urine Bacteria FEW /hpf (None Seen); Urine Blood TRACE /uL (Negative); Urine Mucus FEW (None Seen); Urine Specific Gravity 1.033 (1.001-1.035); Urine WBC 257 /hpf (0 - 3); Urine WBC Clumps PRESENT /hpf (None Seen)
[2019-07-04] MEDS ORDERED: METOCLOPRAMIDE HCL 5MG/ml INJ 2ml VIAL IV ONE (12:45)
[2019-07-04] MEDS ORDERED: MORPHINE SULFATE 4 MG/ML SYR/VIAL IV ONE (12:45)
[2019-07-04] MEDS ORDERED: cefTRIAXone 1GM/50ML D5W 50 ML IV ONE (13:00)
[2019-07-04] MEDS ORDERED: cefTRIAXone SOD 1,000 MG VL ONE (13:08)
[2019-07-04] MEDS ORDERED: MORPHINE SULF INJ 2 MG/ML SYRINGE 1ML IV PRN ×2 (13:30)
[2019-07-04] MEDS ORDERED: NITROGLYCERIN 0.4 MG SL TAB SL PRN (13:30)
[2019-07-04] MEDS ORDERED: CARVEDILOL 3.125 MG TAB PO ONE (13:30)
[2019-07-04] MEDS ORDERED: ONDANSETRON HCL 4 MG/2 ML VIAL IV PRN (13:30)
[2019-07-04] MEDS ORDERED: LABETALOL HCL 5 MG/ML 4ML SYRINGE IV PRN (13:30)
[2019-07-04] MEDS ORDERED: ALPRAZolam 0.25 MG TAB PO PRN (13:30)
[2019-07-04] MEDS ORDERED: ACETAMINOPHEN 500 MG TAB PO PRN (13:30)
[2019-07-04 14:17] LABS: Amphetamine Screen, Urine POSITIVE (NEGATIVE); Barbiturate Scree,Urine NEGATIVE (NEGATIVE); Benzodiazephine Screen, Urine NEGATIVE (NEGATIVE); Cannabinoid Screen, Urine POSITIVE (NEGATIVE); Phencyclidine Screen, Urine NEGATIVE (NEGATIVE)
[2019-07-04 14:25] LABS: Cocaine Screen, Urine NEGATIVE (NEGATIVE); Opiate Scree,Urine NEGATIVE (NEGATIVE)
[2019-07-04] MEDS ORDERED: cloNIDine HCL 0.1 MG TAB PO ONE (15:15)
[2019-07-04] MEDS: CARVEDILOL 12.5 MG TAB PO SCH (22:10)
[2019-07-04] MEDS: ATORVASTATIN 20 MG TAB PO SCH (22:11)
--- NOTE | 2019-07-05 00:15 | NUR ---
PATIENT ST IN 120S ON TELEMETRY PATIENT WAS GIVEN COREG 12.5MG PO IN ER, BUT HAS NOTHING ELSE FOR RATE CONTROL. PATIENT IS A NEW ADMIT WITH NO DIET ORDERS. PAGED HOSPITALIST FOR ORDERS.
[2019-07-05] MEDS ORDERED: dilTIAZem 25 MG/5 ML VIAL IV ONE (00:45)
[2019-07-05 05:00] VITALS: BP 115/87
[2019-07-05] MEDS: LEVOTHYROXINE SODIUM 25 MCG TAB PO SCH (05:38)
[2019-07-05 06:01] LABS: Basophils # (auto) 0.1 10 ^3/uL (0-0.2); Basophils % (auto) 0.4 % (0.0-2.0); Eosinophils # (auto) 0 10 ^3/uL (0-0.8); Hematocrit 48.1 % (41.0-53.0); Hemoglobin 16.4 g/dL (13.5-17.5); Lymphocytes # (auto) 2.5 10 ^3/uL (0.4-5.4); Mean Corpuscular Hemoglobin 30.4 pg (28.0-32.0); Mean Corpuscular Volume 89.4 fL (80.0-100.0); Monocytes # (auto) 2.5 10 ^3/uL (0-1.3); Monocytes % (auto) 10.1 % (0.0-12.0); Neutrophils # (auto) 19.8 10 ^3/uL (1.6-8.6); Neutrophils % (auto) 79.5 % (37.0-80.0); Nucleated Red Blood Cells % 0.1 %; Platelet Count (auto) 178 10^3/uL (140-450); Red Blood Cells 5.38 10^6/uL (4.5-5.90); Red Cell Distribution Width 13.7 % (11.8-14.3); White Blood Cell 24.9 10^3/uL (4.4-10.8)
[2019-07-05 06:19] LABS: BUN/Creatinine Ratio 23.8; Calcium 8.6 mg/dL (8.5-10.1); Potassium 3.1 mmol/L (3.5-5.1)
--- NOTE | 2019-07-05 07:30 | NUR ---
Opening Note Received report form night auditor RN. Patient is resting in bed, respirations even and unlabored. Patient is on room air, respirations even and unlabored. Patient easy to wake by calling name. Patient denies pain at this time. Reviewed plan of care with patient, patient verbalized understanding. Bed in low and locked position, call light within reach. Will continue to monitor Q1 hour and PRN.
[2019-07-05] MEDS: CARVEDILOL 12.5 MG TAB PO SCH ×2 (08:46→17:04)
[2019-07-05] MEDS: cefTRIAXone 1GM/50ML D5W 50 ML IV SCH (08:48)
[2019-07-05 09:00] VITALS: BP 142/92
--- NOTE | 2019-07-05 09:15 | NUR ---
Ambulation Patient ambulated to restroom unassisted, gait steady. No signs or symptoms of distress noted at this time. Will continue to monitor Q1 hour and PRN.
[2019-07-05] MEDS: CLOPIDOGREL BISULFATE 75 MG TAB PO SCH (09:56)
[2019-07-05] MEDS: FAMOTIDINE 20 MG TAB PO SCH (09:56)
[2019-07-05] MEDS: ASPirin 81 mg TAB PO SCH (09:56)
[2019-07-05] MEDS ORDERED: amLODIPine BESYLATE 5 MG TAB PO SCH (10:00)
[2019-07-05] MEDS ORDERED: LOSARTAN POTASSIUM 50 MG TAB PO SCH (10:00)
[2019-07-05] MEDS ORDERED: POTASSIUM CHL 20 Meq TABLET PO ONE (10:45)
--- NOTE | 2019-07-05 11:00 | NUR ---
Dr. Walker at bedside Discussing plan of care with patient and this RN. New orders received. Will implement new orders, will continue to monitor.
[2019-07-05] MEDS ORDERED: SPIRONOLACTONE 25 MG TAB PO ONE (12:00)
--- NOTE | 2019-07-05 12:24 | NUR ---
Rapid influenza swab sent
[2019-07-05 13:00] VITALS: BP 119/94
[2019-07-05] MEDS ORDERED: OMNIPAQUE ORAL SOLN 500ml 12mg/ml PO ONE (16:06)
[2019-07-05 16:55] VITALS: BP 126/81
[2019-07-05] MEDS: FUROSEMIDE 40 MG/4 ML VIAL IV SCH (17:03)
--- NOTE | 2019-07-05 18:04 | NUR ---
Patient taken down to radiology
--- NOTE | 2019-07-05 18:40 | NUR ---
Patient back to room
--- NOTE | 2019-07-05 19:15 | NUR ---
Closing Note Report given to telecommunications facility examiner RN. No signs or symptoms of distress noted a this time.
[2019-07-05 22:00] VITALS: BP 102/70
[2019-07-05] MEDS: ATORVASTATIN 20 MG TAB PO SCH (22:24)
[2019-07-05] MEDS: metroNIDAZOLE 500 MG TAB PO SCH (22:24)
[2019-07-06 05:00] VITALS: BP 127/86
[2019-07-06 05:42] LABS: Basophils # (auto) 0.1 10 ^3/uL (0-0.2); Basophils % (auto) 0.5 % (0.0-2.0); Eosinophils # (auto) 0 10 ^3/uL (0-0.8); Eosinophils % (auto) 0.3 % (0.0-7.0); Hematocrit 41.8 % (41.0-53.0); Hemoglobin 14.5 g/dL (13.5-17.5); Lymphocytes % (auto) 13.8 % (10.0-50.0); Mean Corpuscular Hemoglobin 30.6 pg (28.0-32.0); Mean Corpuscular Hgb Conc. 34.7 g/dL (32.0-36.0); Mean Corpuscular Volume 88.3 fL (80.0-100.0); Monocytes # (auto) 0.8 10 ^3/uL (0-1.3); Neutrophils # (auto) 11.3 10 ^3/uL (1.6-8.6); Neutrophils % (auto) 79.4 % (37.0-80.0); Nucleated Red Blood Cells % 0.2 %; Platelet Count (auto) 157 10^3/uL (140-450); Red Blood Cells 4.74 10^6/uL (4.5-5.90); Red Cell Distribution Width 13.3 % (11.8-14.3); White Blood Cell 14.2 10^3/uL (4.4-10.8)
[2019-07-06] MEDS ORDERED: FUROSEMIDE 40 MG/4 ML VIAL ONE (05:57)
[2019-07-06 06:00] LABS: Albumin 2.7 g/dL (3.4-5.0); Calcium 8.8 mg/dL (8.5-10.1); Magnesium 1.8 mg/dL (1.6-2.6); Potassium 3.4 mmol/L (3.5-5.1)
[2019-07-06 06:04] LABS: % Iron Saturation 6.7 % (20-55)
[2019-07-06 06:07] LABS: BUN/Creatinine Ratio 27.7; Bilirubin, Total 1.3 mg/dL (0.2-1.0); Total Protein 6.6 g/dL (6.4-8.2)
[2019-07-06] MEDS: LEVOTHYROXINE SODIUM 25 MCG TAB PO SCH (06:10)
[2019-07-06] MEDS: metroNIDAZOLE 500 MG TAB PO SCH ×3 (06:10→21:19)
[2019-07-06] MEDS: FUROSEMIDE 40 MG/4 ML VIAL IV SCH ×2 (06:12→18:00)
--- NOTE | 2019-07-06 07:15 | NUR ---
CARDIAC CONSULT: DR Rhett SAHU AT BEDSIDE FOR CARDIAC CONSULT. PATIENT COMPLAINING OF LOWER ABDOMINAL PAIN. INFORMED DR SAHU ON CT ABD AND ORDERED SURGICAL CONSULT DR DELATORRE FOR PARTIAL SMALL BOWEL OBSTRUCTION.
--- NOTE | 2019-07-06 07:42 | NUR ---
Opening Shift Note Assumed care of patient. Pt is awake, alert, and oriented X 4. No S/S of respiratory distress/SOB reported. Patient reports pain in his abdomen; no nausea or vomiting. Ice/cold packs were offered. Bed in lower position, brakes locked, call light within reach. IV is patent. Patient is instructed on POC and to call for assistance as needed. Will continue to monitor for changes Q1hr and PRN.
[2019-07-06 08:00] VITALS: BP 125/90
[2019-07-06] MEDS: CARVEDILOL 12.5 MG TAB PO SCH ×2 (08:33→18:00)
[2019-07-06] MEDS: cefTRIAXone 1GM/50ML D5W 50 ML IV SCH (08:34)
[2019-07-06 08:37] LABS: Ferritin 206.9 ng/mL (10-322); Folate (Folic Acid) 12.26 ng/mL (5.38-24)
[2019-07-06] MEDS: FAMOTIDINE 20 MG TAB PO SCH (08:42)
[2019-07-06] MEDS: ASPirin 81 mg TAB PO SCH (08:43)
[2019-07-06] MEDS: SPIRONOLACTONE 25 MG TAB PO SCH (08:44)
[2019-07-06] MEDS: amLODIPine BESYLATE 5 MG TAB PO SCH (08:45)
[2019-07-06] MEDS: CLOPIDOGREL BISULFATE 75 MG TAB PO SCH (08:46)
[2019-07-06] MEDS: LOSARTAN POTASSIUM 50 MG TAB PO SCH (08:46)
[2019-07-06 09:00] VITALS: BP 125/90
--- NOTE | 2019-07-06 10:09 | NUR ---
PAIN ASSESSMENT Pain assessment performed. Patient reports pain 5 out of 10 and states pain is tolerable and he does need pain med at this time. Ice and heat packs were offered. Patient refused them. Will continue monitoring.
--- NOTE | 2019-07-06 12:10 | NUR ---
lunch tray is hold due to order for series of small bowel obstruction test.
[2019-07-06] MEDS ORDERED: GASTROGRAFIN 120 ML SOL ONE (12:14)
[2019-07-06 13:00] VITALS: BP 97/71
[2019-07-06 16:28] VITALS: BP 124/76
--- NOTE | 2019-07-06 17:00 | NUR ---
Patient is refusing to wear Tele-monitor.
--- NOTE | 2019-07-06 19:44 | NUR ---
CLOSING NOTE PATIENT COMFORTABLY RESTING IN BD, BREATH SOUNDS EVEN AND UNLABORED. NO C/O PAIN. NO S/S OF DISTRESS NOTED. BED AT LOWEST LOCKED POSITION AND CALL LIGHT WITHIN REACH. CARE ENDORSED TO NOC RN.
[2019-07-06] MEDS: HYDROcodone-ACET 5/325MG TAB PO PRN (21:19)
[2019-07-06] MEDS: ATORVASTATIN 20 MG TAB PO SCH (21:19)
[2019-07-06 21:34] VITALS: BP 130/75
[2019-07-07] VITALS (7 sets, daily range): BP systolic 95–154; BP diastolic 51–92
--- NOTE | 2019-07-07 04:47 | NUR ---
SB SERIES STILL PENDING AWAITING RESULTS
[2019-07-07] MEDS: LEVOTHYROXINE SODIUM 25 MCG TAB PO SCH (05:47)
[2019-07-07] MEDS: FUROSEMIDE 40 MG/4 ML VIAL IV SCH (05:47)
[2019-07-07] MEDS: metroNIDAZOLE 500 MG TAB PO SCH ×3 (05:47→21:10)
--- NOTE | 2019-07-07 06:26 | NUR ---
PATIENT SMALL BOWEL SERIES NOT FINALIZED. CALLED RADIOLOGY TO EXPEDITE THE RESULTS.
--- NOTE | 2019-07-07 07:30 | NUR ---
Opening Shift Note Assumed care of patient. Pt is awake, alert, and oriented X 4. No S/S of distress/SOB reported, denies pain at this time. Bed in lower and locked position, call light and phone within reach. IV is patent. Patient is instructed on POC and to call for assistance as needed. Will continue to monitor for changes Q1hr and PRN.
[2019-07-07] MEDS: CARVEDILOL 12.5 MG TAB PO SCH ×2 (08:45→18:00)
[2019-07-07] MEDS: cefTRIAXone 1GM/50ML D5W 50 ML IV SCH (08:45)
--- NOTE | 2019-07-07 09:50 | NUR ---
Dr Walker at bedside, discussed plan of care with patient. Per MD patient to remain NPO until small bowel series results are read. Per MD. Ok to give ice chips.
[2019-07-07] MEDS: LOSARTAN POTASSIUM 50 MG TAB PO SCH (10:08)
[2019-07-07] MEDS: amLODIPine BESYLATE 5 MG TAB PO SCH (10:10)
--- NOTE | 2019-07-07 10:17 | NUR ---
Results from small bowel series on 07/05 still pending. Placed a call to radiology, per staff, they are still working to read it.
[2019-07-07] MEDS: SPIRONOLACTONE 25 MG TAB PO SCH (10:18)
[2019-07-07] MEDS: ASPirin 81 mg TAB PO SCH (10:18)
[2019-07-07] MEDS: CLOPIDOGREL BISULFATE 75 MG TAB PO SCH (10:19)
[2019-07-07] MEDS: FAMOTIDINE 20 MG TAB PO SCH (10:19)
--- NOTE | 2019-07-07 13:10 | NUR ---
DR COLBY AT BEDSIDE, DISCUSSED PLAN OF CARE. NEW ORDER FOR 0.9% SODIUM CHLORIDE (1000ML) TO RUN AT 75ML ORDERED ADVISED THAT PATIENT REMAINS NPO. DR PHILIP PAGED TO VERIFY PLAN FOR PAGED PER SMALL BOWEL RESULT AND DIET.
[2019-07-07] MEDS: SODIUM CHLORIDE 0.9% 1,000 ML IV SCH (13:28)
--- NOTE | 2019-07-07 14:58 | NUR ---
NUTRITION ASSESSMENT NOTES Please refer to link notes of nutrition screen form filed under the intervention section of the plan of care for further details. Est. Energy Needs: 0629-1884 kcal ( 25-30 kcal/kg BW). Est. Protein Needs: 63-70 gms/day ( 1.0-1.1 gms/kg BW). Will continue to monitor pertinent labs and reassess nutrient need prn Addendum: 07/07/19 at [address] Amended: Links added.
--- NOTE | 2019-07-07 15:35 | NUR ---
PATIENT REMAINS ON NPO. PAGED DR. PHILIP AGAIN TO VERIFY PLAN FOR PATIENT REGARDING DIET. AWAITING CALLBACK FROM DR. PHILIP
--- NOTE | 2019-07-07 18:20 | NUR ---
New leads replaced for tele. patient tends to take off tele monitor. Patient encouraged to leave it on.
[2019-07-07] MEDS: FUROSEMIDE 20 MG/2 ML VIAL IV SCH (18:41)
--- NOTE | 2019-07-07 18:42 | NUR ---
1800 COREG 12.5MG HELD, BP IS 95/51, PATIENT IS NPO
--- NOTE | 2019-07-07 18:45 | NUR ---
UNABLE TO GET A CALLBACK FROM DR. PHILIP REGARDING PLAN FOR PATIENT AFTER SMALL BOWEL SERIES RESULT INDICATES PARTIAL SMALL BOWEL OBSTRUCTION. PATIENT IS STILL NPO. PER DR. JONES DURING AM ROUNDS, ICE CHIPS OK.
--- NOTE | 2019-07-07 19:20 | NUR ---
opening shift note Assumed care of patient who is A&O x4. Currently on RA with no s/s of distress. Reports 6/10 lower abdominal pain. Pain management options discussed. Patient remains NPO per Dr. Cotton. Patient is ambulatory without the use of assistive devices. PIV is intact and patent; no s/s of infection or irritation. IVF infusing as ordered. Bed is in low locked position with dock clerk rails up x2. Call light is within reach and Patient encouraged to call for assistance when needed. Will continue to monitor for changes PRN.
[2019-07-07] MEDS: HYDROcodone-ACET 5/325MG TAB PO PRN (21:10)
[2019-07-07] MEDS: ATORVASTATIN 20 MG TAB PO SCH (21:11)
[2019-07-08] VITALS (7 sets, daily range): BP systolic 95–155; BP diastolic 67–89
[2019-07-08] MEDS: SODIUM CHLORIDE 0.9% 1,000 ML IV SCH ×2 (01:48→15:39)
[2019-07-08] MEDS: LEVOTHYROXINE SODIUM 25 MCG TAB PO SCH (05:52)
[2019-07-08] MEDS: FUROSEMIDE 20 MG/2 ML VIAL IV SCH ×2 (05:52→17:49)
[2019-07-08] MEDS: metroNIDAZOLE 500 MG TAB PO SCH ×3 (05:52→21:53)
--- NOTE | 2019-07-08 07:20 | NUR ---
Opening Shift Note Assumed care of patient. Pt is awake, alert, and oriented X 4. No S/S of distress/SOB reported, denies pain at this time. Bed in low and locked position, call light and phone within reach. IV is patent. Plan of care discussed, advised to call for assistance as needed. Will continue to monitor for changes Q1hr and PRN. Patient remains NPO at this time
[2019-07-08] MEDS: CARVEDILOL 12.5 MG TAB PO SCH ×2 (08:00→17:49)
[2019-07-08] MEDS: cefTRIAXone 1GM/50ML D5W 50 ML IV SCH (08:55)
[2019-07-08] MEDS: CLOPIDOGREL BISULFATE 75 MG TAB PO SCH (10:00)
[2019-07-08] MEDS: FAMOTIDINE 20 MG TAB PO SCH (10:00)
[2019-07-08] MEDS: SPIRONOLACTONE 25 MG TAB PO SCH (10:00)
[2019-07-08] MEDS: ASPirin 81 mg TAB PO SCH (10:00)
[2019-07-08] MEDS: amLODIPine BESYLATE 5 MG TAB PO SCH (10:00)
[2019-07-08] MEDS: LOSARTAN POTASSIUM 50 MG TAB PO SCH (10:00)
--- NOTE | 2019-07-08 11:30 | NUR ---
Per Dr Cotton and Dr Walker, patient's diet updated to Full liquid.
--- NOTE | 2019-07-08 19:45 | NUR ---
OPENING SHIFT NOTE Assumed care of patient who is A&O x4. Currently on RA with no s/s of distress. Denies pain at this time. PIV intact and patent. Infusing IVF as ordered. Patient expresses concern regarding finances and living situation. requesting social service consult for information on community resources. Bed is in low locked position with side rails up x2. Call light within reach and patient encouraged to call for assistance when needed. Will continue to monitor for changes PRN.
--- NOTE | 2019-07-08 21:00 | NUR ---
VITAL SIGNS Patient's temperature is 99.8. Cooling measures applied. BP is 87/51, heart rate 113 while sitting. Patient currently has D5LR infusing at 100ml/hr. Hospitalist paged to notify. Addendum: 07/08/19 at 2118 by CLAUDIA FITZPATRICK RN RN documented under wrong patient.
[2019-07-08] MEDS: ATORVASTATIN 20 MG TAB PO SCH (21:53)
[2019-07-09] MEDS: SODIUM CHLORIDE 0.9% 1,000 ML IV SCH (04:45)
[2019-07-09 05:00] VITALS: BP 144/84
[2019-07-09] MEDS: metroNIDAZOLE 500 MG TAB PO SCH ×2 (05:55→13:36)
[2019-07-09] MEDS: LEVOTHYROXINE SODIUM 25 MCG TAB PO SCH (05:56)
[2019-07-09] MEDS: FUROSEMIDE 20 MG/2 ML VIAL IV SCH (06:00)
--- NOTE | 2019-07-09 07:25 | NUR ---
Opening Shift Note Received Pt awake, alert, and oriented X 4. No S/S of distress/SOB reported, denies pain at this time. Bed in low and locked position, call light and phone within reach. Plan of care discussed, advised to call for assistance as needed. Will continue to monitor for changes Q1hr and PRN.
[2019-07-09 08:00] VITALS: BP 145/74
[2019-07-09] MEDS: CARVEDILOL 12.5 MG TAB PO SCH (08:20)
[2019-07-09] MEDS: cefTRIAXone 1GM/50ML D5W 50 ML IV SCH (08:49)
[2019-07-09 09:00] VITALS: BP 145/74
[2019-07-09] MEDS: ASPirin 81 mg TAB PO SCH (09:36)
[2019-07-09] MEDS: SPIRONOLACTONE 25 MG TAB PO SCH (09:36)
[2019-07-09] MEDS: LOSARTAN POTASSIUM 50 MG TAB PO SCH (09:37)
[2019-07-09] MEDS: CLOPIDOGREL BISULFATE 75 MG TAB PO SCH (09:38)
[2019-07-09] MEDS: FAMOTIDINE 20 MG TAB PO SCH (09:38)
[2019-07-09] MEDS: amLODIPine BESYLATE 5 MG TAB PO SCH (09:38)
--- NOTE | 2019-07-09 12:04 | NUR ---
Received Social Service consult for community resources. Called pt on phone. Pt states that he feels he is not earning enough money to make ends meet. Pt states he is disabled and needs more income. He further states he has applied for SSI and has been turned down twice. Explained to pt that Police Shift Commander will direct him to the unemployment office for further assistance. [facility], [address] [facility], [address] [place] [address] .
[2019-07-09 12:56] VITALS: BP 137/73
[2019-07-09 15:06] VITALS: BP 140/79
--- NOTE | 2019-07-09 15:09 | NUR ---
NUTRITION FOLLOWUP NOTES Pt wt is 65.1 kg Pt appetite is good aeb 100% x4 PO intake per RN doc. Pt with no noted distress per mechanical expert. Will continue to monitor and followup prn. Est. Energy Needs: 2756-5059 kcal ( 25-30 kcal/kg BW). Est. Protein Needs: 63-70 gms/day ( 1.0-1.1 gms/kg BW). Will continue to monitor pertinent labs and reassess nutrient need prn LABS: 07/05: GLUC 128 H, NA 133 L, POT 3.4 L, CL 96 L, BUN 43 H, CR 1.55 H, GFR 51 L, ALB 2.7 L GI: Last BM noted on 07/07/19 every 2-4 days per RN doc. BS: 19 low risk, skin intact PES: Problem 1) Altered nutrition related lab values r/t current medical condition aeb elevated RFTs, hyponatremia, hypokalemia, hypoalbuminemia, hyperglycemia Comments Will continue to monitor NPO status, skin status, pertinent labs and weight trend. F/u in 2 to 3 days. Recommendations: 1) Resume oral Cardiac diet when medically appropriate. 2) If Albumin continues trending down, consider Prostat 1 pkt BID. 3) If PO intake <50%, consider Ensure Enlive TID for nutritional supplement. 4) Continue current plan of care.
--- NOTE | 2019-07-09 17:05 | NUR ---
Patient discharged home. Copies of discharge summary, prescription and follow up instructions provided. Patient is ambulatory. alert and oriented x4 and verbalized understanding on discharge instruction. copies of education on covid-19 given. IV discontinued and tele box returned to ICU.
== END 2019-07-09 17:05 | disposition home or self-care (01) | DRG 720 ==
LOC: EDBD 07:48 → ER 07:48 → TELE 07:49 → TELE-WESTW 23:42
PROVIDERS: ADMIT Nurse Practitioner Acute Care; ATTEND Internal Medicine
DX: A41.9 Sepsis, unspecified organism (principal); I50.23 Acute on chronic systolic (congestive) heart failure; K56.600 Partial intestinal obstruction, unspecified as to cause; E11.22 Type 2 diabetes mellitus with diabetic chronic kidney disease; E11.40 Type 2 diabetes mellitus with diabetic neuropathy, unspecified; N18.3 Chronic kidney disease, stage 3 (moderate); E87.1 Hypo-osmolality and hyponatremia; N10 Acute pyelonephritis; A09 Infectious gastroenteritis and colitis, unspecified; K80.20 Calculus of gallbladder without cholecystitis without obstruction; E87.6 Hypokalemia; I25.5 Ischemic cardiomyopathy; I16.9 Hypertensive crisis, unspecified; I13.0 Hypertensive heart and chronic kidney disease with heart failure and stage 1 through stage 4 chronic kidney disease, or unspecified chronic kidney disease; F15.10 Other stimulant abuse, uncomplicated; E78.5 Hyperlipidemia, unspecified; J44.9 Chronic obstructive pulmonary disease, unspecified; D72.829 Elevated white blood cell count, unspecified; K40.90 Unilateral inguinal hernia, without obstruction or gangrene, not specified as recurrent; F12.90 Cannabis use, unspecified, uncomplicated; F17.210 Nicotine dependence, cigarettes, uncomplicated; I25.10 Atherosclerotic heart disease of native coronary artery without angina pectoris; Z79.02 Long term (current) use of antithrombotics/antiplatelets; I25.2 Old myocardial infarction; Z95.5 Presence of coronary angioplasty implant and graft; Z79.82 Long term (current) use of aspirin
CPT/HCPCS: 36415; 71046; 74176; 74250; 76705; 80048; 80053; 80307; 81001; 82270; 82607; 82728; 82746; 83036; 83540; 83550; 83605; 83690; 83735; 83880; 84443; 84484; 85025; 85652; 86141; 86703; 87045; 87086; 87427; 87804; 93005; 96361; 96374; 96375; G0378; J0696; J1885; J2405; J3490

== ENCOUNTER 2021-04-07 17:44 | Inpatient (IN) | payer MEDICAID ==
[~2021-04-07] VITALS: Ht 177.8 cm; Wt 77.0 kg
[2021-04-07 20:23] LABS: Basophils # (auto) 0.1 10 ^3/uL (0-0.2); Basophils % (auto) 0.9 % (0.0-2.0); Eosinophils # (auto) 0 10 ^3/uL (0-0.8); Eosinophils % (auto) 0.2 % (0.0-7.0); Hematocrit 46.7 % (41.0-53.0); Lymphocytes # (auto) 0.8 10 ^3/uL (0.4-5.4); Lymphocytes % (auto) 7.1 % (10.0-50.0); Mean Corpuscular Hgb Conc. 32.2 g/dL (32.0-36.0); Mean Corpuscular Volume 86.9 fL (80.0-100.0); Monocytes # (auto) 0.6 10 ^3/uL (0-1.3); Monocytes % (auto) 5.6 % (0.0-12.0); Neutrophils # (auto) 9.8 10 ^3/uL (1.6-8.6); Neutrophils % (auto) 86.2 % (37.0-80.0); Red Blood Cells 5.37 10^6/uL (4.5-5.90); Red Cell Distribution Width 15.5 % (11.8-14.3); White Blood Cell 11.4 10^3/uL (4.4-10.8)
[2021-04-07 20:35] LABS: INR 1.25 (0.9-1.15); Partial Thromboplastin Time 25.4 sec (23.6-33.0)
[2021-04-07 20:45] LABS: Albumin 2.3 g/dL (3.4-5.0); Calcium 8.2 mg/dL (8.5-10.1); Potassium 4.8 mmol/L (3.5-5.1)
[2021-04-07 20:52] LABS: BUN/Creatinine Ratio 21.6; Bilirubin, Total 1.4 mg/dL (0.2-1.0)
[2021-04-07] MEDS ORDERED: ASPirin 325 MG TAB PO ONE (22:15)
[2021-04-07] MEDS ORDERED: FUROSEMIDE 100 MG/10ML VIAL IV ONE (22:30)
[2021-04-07] MEDS ORDERED: NTG 0.1MG/HR TOPICAL PATCH TD ONE (22:30)
[2021-04-07] MEDS ORDERED: cloNIDine HCL 0.1 MG TAB PO PRN (22:45)
[2021-04-07] MEDS ORDERED: ACETAMINOPHEN 325 MG TAB PO PRN (22:45)
[2021-04-07] MEDS ORDERED: MORPHINE SULFATE INJECTION 2 MG/ML SYRG IV PRN (22:45)
[2021-04-07] MEDS ORDERED: ONDANSETRON HCL 4 MG/2 ML VIAL IV PRN (22:45)
[2021-04-07] MEDS ORDERED: TEMAZEPAM 15 MG CAP PO PRN (22:45)
[2021-04-07] MEDS ORDERED: NITROGLYCERIN 0.4 MG SL TAB SL PRN (22:45)
[2021-04-08] MEDS ORDERED: NITROGLYCERIN 0.2MG/HR TOPICAL PATCH TD ONE
[2021-04-08] MEDS: FUROSEMIDE 20 MG/2 ML VIAL IV SCH ×2 (05:55→18:30)
[2021-04-08] MEDS: LEVOTHYROXINE SODIUM 25 MCG TAB PO SCH (06:00)
[2021-04-08 08:16] LABS: Basophils # (auto) 0.1 10 ^3/uL (0-0.2); Basophils % (auto) 0.6 % (0.0-2.0); Eosinophils # (auto) 0.1 10 ^3/uL (0-0.8); Eosinophils % (auto) 1.4 % (0.0-7.0); Hematocrit 44.1 % (41.0-53.0); Hemoglobin 14.5 g/dL (13.5-17.5); Lymphocytes # (auto) 1.6 10 ^3/uL (0.4-5.4); Mean Corpuscular Hemoglobin 28.5 pg (28.0-32.0); Mean Corpuscular Hgb Conc. 32.8 g/dL (32.0-36.0); Mean Corpuscular Volume 86.8 fL (80.0-100.0); Monocytes # (auto) 0.9 10 ^3/uL (0-1.3); Monocytes % (auto) 9.8 % (0.0-12.0); Neutrophils # (auto) 6.5 10 ^3/uL (1.6-8.6); Neutrophils % (auto) 71.2 % (37.0-80.0); Nucleated Red Blood Cells % 0.1 %; Red Blood Cells 5.08 10^6/uL (4.5-5.90); Red Cell Distribution Width 15.1 % (11.8-14.3); White Blood Cell 9.1 10^3/uL (4.4-10.8)
[2021-04-08 09:00] VITALS: BP 182/82
[2021-04-08 09:29] LABS: Albumin 2.1 g/dL (3.4-5.0); BUN/Creatinine Ratio 22.6; Calcium 8.6 mg/dL (8.5-10.1); Potassium 4.1 mmol/L (3.5-5.1)
[2021-04-08 09:41] LABS: Bilirubin, Total 1.1 mg/dL (0.2-1.0); Total Protein 5.4 g/dL (6.4-8.2)
[2021-04-08] MEDS: ENOXAPARIN SOD 40 MG/0.4 ML SYRINGE SC SCH (09:48)
[2021-04-08] MEDS: CLOPIDOGREL BISULFATE 75 MG TAB PO SCH (09:49)
[2021-04-08] MEDS ORDERED: LOSARTAN POTASSIUM 25 MG TAB PO SCH (10:00)
[2021-04-08] MEDS ORDERED: ASPirin 81 mg TAB PO SCH (10:00)
[2021-04-08] MEDS ORDERED: CARVEDILOL 3.125 MG TAB PO SCH (10:00)
[2021-04-08 13:00] VITALS: BP 155/85
[2021-04-08 13:05] VITALS: BP 146/104
[2021-04-08 17:00] VITALS: BP 141/95
[2021-04-08 20:00] VITALS: BP 159/105
[2021-04-08 22:00] VITALS: BP 159/105
[2021-04-08] MEDS: SACUBITRIL-VALSARTAN 24mg/26mg TAB PO SCH (23:26)
[2021-04-08] MEDS: ATORVASTATIN 20 MG TAB PO SCH (23:27)
[2021-04-08] MEDS: CARVEDILOL 3.125 MG TAB PO SCH (23:27)
[2021-04-09 05:00] VITALS: BP 141/100
[2021-04-09] MEDS: FUROSEMIDE 20 MG/2 ML VIAL IV SCH ×2 (06:40→18:44)
[2021-04-09] MEDS: LEVOTHYROXINE SODIUM 25 MCG TAB PO SCH (06:40)
[2021-04-09 08:39] VITALS: BP 148/94
[2021-04-09] MEDS: CARVEDILOL 3.125 MG TAB PO SCH ×2 (09:28→22:48)
[2021-04-09] MEDS: ASPirin 81 mg TAB PO SCH (09:29)
[2021-04-09] MEDS: CLOPIDOGREL BISULFATE 75 MG TAB PO SCH (09:29)
[2021-04-09] MEDS: SACUBITRIL-VALSARTAN 24mg/26mg TAB PO SCH ×2 (09:29→22:48)
[2021-04-09] MEDS: ENOXAPARIN SOD 40 MG/0.4 ML SYRINGE SC SCH (10:00)
[2021-04-09 13:00] VITALS: BP 121/83
[2021-04-09 17:00] VITALS: BP 130/80
[2021-04-09 22:00] VITALS: BP 132/96
[2021-04-09] MEDS: ATORVASTATIN 20 MG TAB PO SCH (22:00)
[2021-04-10 05:00] VITALS: BP 141/97
[2021-04-10] MEDS: FUROSEMIDE 20 MG/2 ML VIAL IV SCH (05:00)
[2021-04-10] MEDS: LEVOTHYROXINE SODIUM 25 MCG TAB PO SCH (05:06)
[2021-04-10 09:00] VITALS: BP 118/62
[2021-04-10] MEDS ORDERED: GASTROGRAFIN 120 ML SOL ONE (10:16)
[2021-04-10 13:00] VITALS: BP 163/107
[2021-04-10] MEDS: CLOPIDOGREL BISULFATE 75 MG TAB PO SCH (13:08)
[2021-04-10] MEDS: ASPirin 81 mg TAB PO SCH (13:08)
[2021-04-10] MEDS: ENOXAPARIN SOD 40 MG/0.4 ML SYRINGE SC SCH (13:09)
[2021-04-10] MEDS: CARVEDILOL 3.125 MG TAB PO SCH ×2 (13:09→22:39)
[2021-04-10] MEDS: SACUBITRIL-VALSARTAN 24mg/26mg TAB PO SCH ×2 (13:09→22:39)
[2021-04-10] MEDS ORDERED: CLOP75TA70 PO ×2 (13:21→13:26)
[2021-04-10] MEDS ORDERED: ATOR20TA50 PO (13:26)
[2021-04-10] MEDS ORDERED: LEVO25TA6 PO ×2 (13:26→13:37)
[2021-04-10] MEDS ORDERED: ASPI1TAB19 PO ×3 (13:26→13:37)
[2021-04-10] MEDS ORDERED: CLOP75TA28 PO (13:26)
[2021-04-10] MEDS ORDERED: LOSA-69 PO ×2 (13:26→13:37)
[2021-04-10] MEDS ORDERED: CAR125T OR ×3 (13:26→13:37)
[2021-04-10] MEDS ORDERED: AMLO-489 PO ×2 (13:34→13:37)
[2021-04-10 17:00] VITALS: BP 161/108
[2021-04-10 20:00] VITALS: BP 157/119
[2021-04-10] MEDS: ATORVASTATIN 20 MG TAB PO SCH (22:39)
[2021-04-11 05:00] VITALS: BP 143/85
[2021-04-11 05:21] LABS: Potassium 4.2 mmol/L (3.5-5.1)
[2021-04-11 05:23] LABS: BUN/Creatinine Ratio 23.4
[2021-04-11] MEDS: LEVOTHYROXINE SODIUM 25 MCG TAB PO SCH (06:28)
[2021-04-11 09:00] VITALS: BP 155/92
[2021-04-11] MEDS: ASPirin 81 mg TAB PO SCH (09:46)
[2021-04-11] MEDS: ENOXAPARIN SOD 40 MG/0.4 ML SYRINGE SC SCH (09:47)
[2021-04-11] MEDS: SACUBITRIL-VALSARTAN 24mg/26mg TAB PO SCH ×2 (09:47→22:00)
[2021-04-11] MEDS: CLOPIDOGREL BISULFATE 75 MG TAB PO SCH (09:47)
[2021-04-11] MEDS: FUROSEMIDE 20 MG/2 ML VIAL IV SCH (09:48)
[2021-04-11] MEDS: CARVEDILOL 3.125 MG TAB PO SCH ×2 (09:49→22:00)
[2021-04-11 13:00] VITALS: BP 145/82
[2021-04-11 17:00] VITALS: BP 148/98
[2021-04-11 22:00] VITALS: BP 150/82
[2021-04-11] MEDS: ATORVASTATIN 20 MG TAB PO SCH (22:00)
[2021-04-12 05:00] VITALS: BP 162/99
[2021-04-12] MEDS: LEVOTHYROXINE SODIUM 25 MCG TAB PO SCH (06:46)
[2021-04-12] MEDS: CARVEDILOL 3.125 MG TAB PO SCH (08:38)
[2021-04-12] MEDS: ASPirin 81 mg TAB PO SCH (08:39)
[2021-04-12] MEDS: ENOXAPARIN SOD 40 MG/0.4 ML SYRINGE SC SCH (08:39)
[2021-04-12] MEDS: CLOPIDOGREL BISULFATE 75 MG TAB PO SCH (08:39)
[2021-04-12] MEDS: SACUBITRIL-VALSARTAN 24mg/26mg TAB PO SCH ×2 (08:39→22:07)
[2021-04-12] MEDS: FUROSEMIDE 20 MG/2 ML VIAL IV SCH (08:39)
[2021-04-12 10:47] VITALS: BP 164/107
[2021-04-12 13:00] VITALS: BP 145/104
[2021-04-12 17:00] VITALS: BP 124/86
[2021-04-12 22:00] VITALS: BP 160/101
[2021-04-12] MEDS: CARVEDILOL 12.5 MG TAB PO SCH (22:07)
[2021-04-12] MEDS: ATORVASTATIN 20 MG TAB PO SCH (22:08)
[2021-04-13 05:00] VITALS: BP 140/103
[2021-04-13 08:06] LABS: Calcium 8.3 mg/dL (8.5-10.1)
[2021-04-13 08:08] LABS: BUN/Creatinine Ratio 22.5; Magnesium 1.9 mg/dL (1.6-2.6)
[2021-04-13 08:12] LABS: Basophils # (auto) 0.1 10 ^3/uL (0-0.2); Eosinophils # (auto) 0.3 10 ^3/uL (0-0.8); Eosinophils % (auto) 3.4 % (0.0-7.0); Hematocrit 43.8 % (41.0-53.0); Hemoglobin 14.4 g/dL (13.5-17.5); Lymphocytes # (auto) 1.5 10 ^3/uL (0.4-5.4); Lymphocytes % (auto) 20.2 % (10.0-50.0); Mean Corpuscular Hemoglobin 28.7 pg (28.0-32.0); Mean Corpuscular Hgb Conc. 32.8 g/dL (32.0-36.0); Mean Corpuscular Volume 87.4 fL (80.0-100.0); Monocytes # (auto) 0.7 10 ^3/uL (0-1.3); Monocytes % (auto) 9.5 % (0.0-12.0); Neutrophils # (auto) 4.9 10 ^3/uL (1.6-8.6); Neutrophils % (auto) 65.9 % (37.0-80.0); Nucleated Red Blood Cells % 0.1 %; Red Blood Cells 5.01 10^6/uL (4.5-5.90); Red Cell Distribution Width 15.3 % (11.8-14.3); White Blood Cell 7.4 10^3/uL (4.4-10.8)
[2021-04-13 09:00] VITALS: BP 135/88
[2021-04-13] MEDS: ENOXAPARIN SOD 40 MG/0.4 ML SYRINGE SC SCH (09:48)
[2021-04-13] MEDS: SACUBITRIL-VALSARTAN 24mg/26mg TAB PO SCH (09:49)
[2021-04-13] MEDS: ASPirin 81 mg TAB PO SCH (09:49)
[2021-04-13] MEDS: CLOPIDOGREL BISULFATE 75 MG TAB PO SCH (09:49)
[2021-04-13] MEDS: FUROSEMIDE 20 MG/2 ML VIAL IV SCH (09:50)
[2021-04-13] MEDS: CARVEDILOL 12.5 MG TAB PO SCH ×2 (09:53→21:17)
[2021-04-13 10:02] LABS: Potassium 5.6 mmol/L (3.5-5.1)
[2021-04-13 13:00] VITALS: BP 120/81
[2021-04-13] MEDS ORDERED: SODIUM ZIRCONIUM CYCL 10 GM PAK PO ONE (15:00)
[2021-04-13 17:00] VITALS: BP 145/89
[2021-04-13 21:00] VITALS: BP 149/91
[2021-04-13] MEDS: SODIUM ZIRCONIUM CYCL 10 GM PAK PO SCH (21:16)
[2021-04-13] MEDS: ATORVASTATIN 20 MG TAB PO SCH (21:16)
[2021-04-14 03:40] VITALS: BP 141/95
[2021-04-14] MEDS: LEVOTHYROXINE SODIUM 50 MCG TAB PO SCH ×2 (05:48→05:50)
[2021-04-14] MEDS: SODIUM ZIRCONIUM CYCL 10 GM PAK PO SCH (06:00)
[2021-04-14 08:29] LABS: Potassium 4.4 mmol/L (3.5-5.1)
[2021-04-14] MEDS: ASPirin 81 mg TAB PO SCH (10:25)
[2021-04-14] MEDS: ENOXAPARIN SOD 40 MG/0.4 ML SYRINGE SC SCH (10:26)
[2021-04-14] MEDS: CLOPIDOGREL BISULFATE 75 MG TAB PO SCH (10:26)
[2021-04-14] MEDS: FUROSEMIDE 20 MG/2 ML VIAL IV SCH (10:29)
[2021-04-14] MEDS: CARVEDILOL 12.5 MG TAB PO SCH ×2 (10:29→21:38)
[2021-04-14] MEDS: ATORVASTATIN 20 MG TAB PO SCH (21:37)
[2021-04-14 22:00] VITALS: BP 142/93
[2021-04-15 05:31] VITALS: BP 170/102
[2021-04-15] MEDS: hydrALAZINE HCL 20 MG/ML VL IV PRN ×2 (05:48→15:30)
[2021-04-15] MEDS: LEVOTHYROXINE SODIUM 50 MCG TAB PO SCH (05:48)
[2021-04-15 06:17] VITALS: BP 129/103
[2021-04-15 08:01] VITALS: BP 163/92
[2021-04-15 09:18] LABS: INR 1.17 (0.9-1.15)
[2021-04-15 09:29] LABS: Potassium 4.4 mmol/L (3.5-5.1)
[2021-04-15 09:40] LABS: BUN/Creatinine Ratio 26.7; Calcium 8.4 mg/dL (8.5-10.1)
[2021-04-15] MEDS: CLOPIDOGREL BISULFATE 75 MG TAB PO SCH (10:17)
[2021-04-15] MEDS: CARVEDILOL 12.5 MG TAB PO SCH (10:18)
[2021-04-15] MEDS: ASPirin 81 mg TAB PO SCH (10:18)
[2021-04-15] MEDS: FUROSEMIDE 20 MG/2 ML VIAL IV SCH (10:19)
[2021-04-15] MEDS: ENOXAPARIN SOD 40 MG/0.4 ML SYRINGE SC SCH (10:19)
[2021-04-15] MEDS ORDERED: ASPI1TAB20 PO (11:23)
[2021-04-15] MEDS ORDERED: CLOP75TA28 PO (11:23)
[2021-04-15] MEDS ORDERED: CARV25TA PO (11:24)
[2021-04-15] MEDS ORDERED: FURO40TA4 PO (11:25)
[2021-04-15] MEDS ORDERED: SACU1TAB PO (11:25)
[2021-04-15] MEDS ORDERED: LEV50T PO (11:28)
[2021-04-15 11:58] VITALS: BP 168/114
== END 2021-04-15 17:50 | disposition home or self-care (01) | DRG 194 ==
LOC: EDBD 17:44 → ER 17:44 → TELE 22:45 → TELE-CENTR 04-08 09:00
PROVIDERS: ADMIT Nurse Practitioner; ATTEND Internal Medicine Nephrology
DX: I13.0 Hypertensive heart and chronic kidney disease with heart failure and stage 1 through stage 4 chronic kidney disease, or unspecified chronic kidney disease (principal); E43 Unspecified severe protein-calorie malnutrition; I24.8 Other forms of acute ischemic heart disease; N18.31 Chronic kidney disease, stage 3a; I50.23 Acute on chronic systolic (congestive) heart failure; I50.82 Biventricular heart failure; I25.5 Ischemic cardiomyopathy; F15.90 Other stimulant use, unspecified, uncomplicated; E78.5 Hyperlipidemia, unspecified; Z20.822 Contact with and (suspected) exposure to COVID-19; F17.210 Nicotine dependence, cigarettes, uncomplicated; I25.10 Atherosclerotic heart disease of native coronary artery without angina pectoris; Z79.02 Long term (current) use of antithrombotics/antiplatelets; Z79.82 Long term (current) use of aspirin; Z91.14 Patient's other noncompliance with medication regimen; Z98.61 Coronary angioplasty status
CPT/HCPCS: 36415; 71045; 74250; 80048; 80053; 80061; 82306; 83735; 83880; 84132; 84443; 84484; 85025; 85610; 85730; 87426; 93005; 93306; 96374; G0378

== ENCOUNTER 2022-02-28 23:43 | Inpatient (IN) | payer MEDICAID ==
[~2022-02-28] VITALS: Ht 180.3 cm; Wt 88.6 kg
[~2022-02-28 23:43] MED LIST changes: +AMLO-489 PO; +ASPI1TAB19 PO; -ASPI81CH43 PO; -ATOR20TA50 PO; +CAR125T OR; -CAR3125T PO; +LEV50T PO; +SACU1TAB PO
[2022-03-01] MEDS ORDERED: cloNIDine HCL 0.1 MG TAB PO ONE
[2022-03-01] MEDS ORDERED: HYDROcodone-ACET 5/325MG TAB PO ONE
[2022-03-01 00:34] LABS: Basophils # (auto) 0.1 10 ^3/uL (0-0.2); Basophils % (auto) 0.9 % (0.0-2.0); Eosinophils # (auto) 0.1 10 ^3/uL (0-0.8); Eosinophils % (auto) 0.8 % (0.0-7.0); Hematocrit 44.7 % (41.0-53.0); Hemoglobin 14.3 g/dL (13.5-17.5); Lymphocytes # (auto) 1.6 10 ^3/uL (0.4-5.4); Lymphocytes % (auto) 15.4 % (10.0-50.0); Mean Corpuscular Hemoglobin 27.8 pg (28.0-32.0); Mean Corpuscular Volume 86.9 fL (80.0-100.0); Monocytes # (auto) 0.9 10 ^3/uL (0-1.3); Monocytes % (auto) 8.7 % (0.0-12.0); Neutrophils # (auto) 7.5 10 ^3/uL (1.6-8.6); Neutrophils % (auto) 74.2 % (37.0-80.0); Nucleated Red Blood Cells % 0.1 %; Red Blood Cells 5.15 10^6/uL (4.5-5.90); Red Cell Distribution Width 15.9 % (11.8-14.3); White Blood Cell 10.1 10^3/uL (4.4-10.8)
[2022-03-01 00:46] LABS: Albumin 2.4 g/dL (3.4-5.0); BUN/Creatinine Ratio 17.6; Calcium 8.7 mg/dL (8.5-10.1); Magnesium 1.8 mg/dL (1.6-2.6); Potassium 4.6 mmol/L (3.5-5.1)
[2022-03-01 00:49] LABS: Bilirubin, Total 1.5 mg/dL (0.2-1.0); Total Protein 5.6 g/dL (6.4-8.2)
[2022-03-01 00:50] LABS: INR 1.22 (0.9-1.15); Partial Thromboplastin Time 28.8 sec (24.6-33.4)
[2022-03-01] MEDS ORDERED: NITROGLYCERIN 0.4 MG SL TAB SL PRN (05:00)
[2022-03-01] MEDS ORDERED: MORPHINE SULFATE INJ 2 MG/ml SYRG IV PRN (05:00)
[2022-03-01] MEDS ORDERED: ONDANSETRON HCL 4 MG/2 ML VIAL IV PRN (05:00)
[2022-03-01] MEDS ORDERED: ACETAMINOPHEN 325 MG TAB PO PRN (05:00)
[2022-03-01] MEDS ORDERED: FUROSEMIDE 20 MG/2 ML VIAL IV SCH (06:00)
[2022-03-01] MEDS ORDERED: amLODIPine BESYLATE 5 MG TAB PO SCH (10:00)
[2022-03-01] MEDS ORDERED: LOSARTAN POTASSIUM 50 MG TAB PO SCH (10:00)
[2022-03-01] MEDS: SACUBITRIL-VALSARTAN 24mg/26mg TAB PO SCH ×2 (10:00→22:10)
[2022-03-01] MEDS ORDERED: CARVEDILOL 12.5 MG TAB PO SCH ×2 (10:00→22:00)
[2022-03-01] MEDS: CLOPIDOGREL BISULFATE 75 MG TAB PO SCH (11:13)
[2022-03-01] MEDS: ENOXAPARIN SOD 40 MG/0.4 ML SYRINGE SC SCH (11:14)
[2022-03-01] MEDS: ASPirin 81 mg TAB PO SCH (11:14)
[2022-03-01] MEDS: LEVOTHYROXINE SODIUM 50 MCG TAB PO SCH (11:32)
[2022-03-01] MEDS: DOBUTamine 1000MCG/ML 250 ML IV SCH (15:37)
[2022-03-01] MEDS: FUROSEMIDE 20 MG/2 ML VIAL IV SCH (18:00)
[2022-03-01] MEDS: hydrALAZINE HCL 20 MG/ML VL IV PRN (22:10)
[2022-03-01] MEDS: CARVEDILOL 12.5 MG TAB PO SCH (22:10)
[2022-03-02] MEDS ORDERED: ONDANSETRON HCL 4 MG/2 ML VIAL IV ONE (01:45)
[2022-03-02] MEDS ORDERED: MORPHINE SULFATE 4 MG/ML SYR/VIAL IV ONE (01:45)
[2022-03-02 05:28] LABS: Basophils # (auto) 0 10 ^3/uL (0-0.2); Basophils % (auto) 0.5 % (0.0-2.0); Eosinophils # (auto) 0.3 10 ^3/uL (0-0.8); Hematocrit 42.6 % (41.0-53.0); Hemoglobin 13.5 g/dL (13.5-17.5); Lymphocytes # (auto) 1.1 10 ^3/uL (0.4-5.4); Lymphocytes % (auto) 11.5 % (10.0-50.0); Mean Corpuscular Hemoglobin 27.7 pg (28.0-32.0); Mean Corpuscular Hgb Conc. 31.8 g/dL (32.0-36.0); Mean Corpuscular Volume 87.2 fL (80.0-100.0); Monocytes % (auto) 10.2 % (0.0-12.0); Neutrophils # (auto) 7.2 10 ^3/uL (1.6-8.6); Neutrophils % (auto) 74.8 % (37.0-80.0); Nucleated Red Blood Cells % 0.1 %; Red Blood Cells 4.88 10^6/uL (4.5-5.90); Red Cell Distribution Width 15.3 % (11.8-14.3); White Blood Cell 9.7 10^3/uL (4.4-10.8)
[2022-03-02 05:37] LABS: Potassium 3.8 mmol/L (3.5-5.1)
[2022-03-02 05:46] LABS: Albumin 2.1 g/dL (3.4-5.0); BUN/Creatinine Ratio 23.1; Bilirubin, Total 0.8 mg/dL (0.2-1.0); Calcium 8.3 mg/dL (8.5-10.1); Total Protein 5.5 g/dL (6.4-8.2)
[2022-03-02] MEDS: FUROSEMIDE 20 MG/2 ML VIAL IV SCH ×2 (06:25→18:10)
[2022-03-02] MEDS: LEVOTHYROXINE SODIUM 50 MCG TAB PO SCH (07:06)
[2022-03-02] MEDS ORDERED: MAGNESIUM SULFATE 1GM/100ML 100 ML IV ONE (09:15)
[2022-03-02] MEDS: ASPirin 81 mg TAB PO SCH (10:58)
[2022-03-02] MEDS: CARVEDILOL 12.5 MG TAB PO SCH ×2 (10:58→22:14)
[2022-03-02] MEDS: SACUBITRIL-VALSARTAN 24mg/26mg TAB PO SCH ×2 (10:59→22:15)
[2022-03-02] MEDS: CLOPIDOGREL BISULFATE 75 MG TAB PO SCH (10:59)
[2022-03-02] MEDS: ENOXAPARIN SOD 40 MG/0.4 ML SYRINGE SC SCH (10:59)
[2022-03-02] MEDS: DOBUTamine 1000MCG/ML 250 ML IV SCH (12:15)
[2022-03-02 20:40] VITALS: BP 153/89
[2022-03-03 05:16] LABS: Basophils # (auto) 0.1 10 ^3/uL (0-0.2); Basophils % (auto) 0.9 % (0.0-2.0); Eosinophils # (auto) 0.2 10 ^3/uL (0-0.8); Eosinophils % (auto) 1.8 % (0.0-7.0); Hematocrit 41.9 % (41.0-53.0); Hemoglobin 13.2 g/dL (13.5-17.5); Lymphocytes # (auto) 1.1 10 ^3/uL (0.4-5.4); Lymphocytes % (auto) 13.2 % (10.0-50.0); Mean Corpuscular Hemoglobin 27.4 pg (28.0-32.0); Mean Corpuscular Hgb Conc. 31.5 g/dL (32.0-36.0); Mean Corpuscular Volume 86.9 fL (80.0-100.0); Monocytes # (auto) 0.9 10 ^3/uL (0-1.3); Monocytes % (auto) 10.9 % (0.0-12.0); Neutrophils # (auto) 6.1 10 ^3/uL (1.6-8.6); Neutrophils % (auto) 73.2 % (37.0-80.0); Nucleated Red Blood Cells % 0.1 %; Red Blood Cells 4.83 10^6/uL (4.5-5.90); Red Cell Distribution Width 15.6 % (11.8-14.3); White Blood Cell 8.3 10^3/uL (4.4-10.8)
[2022-03-03 05:17] VITALS: BP 123/63
[2022-03-03 05:39] LABS: Calcium 7.9 mg/dL (8.5-10.1); Potassium 4.3 mmol/L (3.5-5.1)
[2022-03-03 05:42] LABS: BUN/Creatinine Ratio 27.1
[2022-03-03] MEDS: LEVOTHYROXINE SODIUM 50 MCG TAB PO SCH (06:33)
[2022-03-03] MEDS: FUROSEMIDE 20 MG/2 ML VIAL IV SCH ×2 (06:33→18:09)
[2022-03-03] MEDS: CARVEDILOL 12.5 MG TAB PO SCH ×2 (08:58→23:08)
[2022-03-03] MEDS: SACUBITRIL-VALSARTAN 24mg/26mg TAB PO SCH ×2 (08:59→23:09)
[2022-03-03] MEDS: ASPirin 81 mg TAB PO SCH (08:59)
[2022-03-03] MEDS: ENOXAPARIN SOD 40 MG/0.4 ML SYRINGE SC SCH (08:59)
[2022-03-03] MEDS: CLOPIDOGREL BISULFATE 75 MG TAB PO SCH (08:59)
[2022-03-03 09:00] VITALS: BP 150/75
[2022-03-03] MEDS: DOBUTamine 1000MCG/ML 250 ML IV SCH (09:56)
[2022-03-03 13:00] VITALS: BP 127/80
[2022-03-03 17:00] VITALS: BP 149/76
[2022-03-03] MEDS ORDERED: HYDROcodone-ACET 5/325MG TAB PO PRN (19:00)
[2022-03-03 22:00] VITALS: BP 100/56
[2022-03-04] MEDS: hydrALAZINE HCL 20 MG/ML VL IV PRN (00:44)
[2022-03-04 01:45] VITALS: BP 146/84
[2022-03-04 04:53] VITALS: BP 163/80
[2022-03-04] MEDS: FUROSEMIDE 20 MG/2 ML VIAL IV SCH ×2 (06:38→18:35)
[2022-03-04 07:00] LABS: Calcium 7.8 mg/dL (8.5-10.1); Potassium 4.1 mmol/L (3.5-5.1)
[2022-03-04] MEDS: LEVOTHYROXINE SODIUM 50 MCG TAB PO SCH (07:00)
[2022-03-04 07:02] LABS: BUN/Creatinine Ratio 29.9
[2022-03-04 08:55] VITALS: BP 149/77
[2022-03-04] MEDS: ASPirin 81 mg TAB PO SCH (10:12)
[2022-03-04] MEDS: SACUBITRIL-VALSARTAN 24mg/26mg TAB PO SCH ×2 (10:12→21:55)
[2022-03-04] MEDS: CLOPIDOGREL BISULFATE 75 MG TAB PO SCH (10:12)
[2022-03-04] MEDS: CARVEDILOL 12.5 MG TAB PO SCH ×2 (10:12→21:55)
[2022-03-04] MEDS: ENOXAPARIN SOD 40 MG/0.4 ML SYRINGE SC SCH (10:13)
[2022-03-04 13:00] VITALS: BP 145/89
[2022-03-04] MEDS ORDERED: ONDANSETRON HCL 4 MG/2 ML VIAL IV ONE (14:45)
[2022-03-04] MEDS ORDERED: HYDROmorphone HCL 2 MG/ML VL/or syr IM ONE (14:45)
[2022-03-04] MEDS ORDERED: CLOP75TA70 PO (15:14)
[2022-03-04] MEDS ORDERED: ASPI-543 PO (15:14)
[2022-03-04] MEDS ORDERED: SACU1TAB PO (15:14)
[2022-03-04] MEDS ORDERED: FURO40TA4 PO (15:14)
[2022-03-04] MEDS ORDERED: CAR125T PO (15:14)
[2022-03-04] MEDS ORDERED: LEVO-28 PO (15:16)
[2022-03-04 16:45] VITALS: BP 149/86
[2022-03-04 22:00] VITALS: BP 134/77
[2022-03-05 05:00] VITALS: BP_SYST 144; BP_SYST 153; BP_DIAS 68; BP_DIAS 85
[2022-03-05] MEDS: LEVOTHYROXINE SODIUM 50 MCG TAB PO SCH (06:00)
[2022-03-05] MEDS: FUROSEMIDE 20 MG/2 ML VIAL IV SCH (06:00)
[2022-03-05] MEDS: hydrALAZINE HCL 20 MG/ML VL IV PRN (06:01)
[2022-03-05 07:30] VITALS: BP 133/86
[2022-03-05 08:00] VITALS: BP 138/71
[2022-03-05] MEDS: SACUBITRIL-VALSARTAN 24mg/26mg TAB PO SCH (10:00)
[2022-03-05] MEDS: ENOXAPARIN SOD 40 MG/0.4 ML SYRINGE SC SCH (10:00)
[2022-03-05] MEDS: ASPirin 81 mg TAB PO SCH (10:01)
[2022-03-05] MEDS: CARVEDILOL 12.5 MG TAB PO SCH (10:02)
[2022-03-05] MEDS: CLOPIDOGREL BISULFATE 75 MG TAB PO SCH (10:02)
[2022-03-05 12:00] VITALS: BP 135/85
[2022-03-05 15:47] VITALS: BP 135/85
[2022-03-05 16:00] VITALS: BP 148/68
== END 2022-03-05 17:00 | disposition home or self-care (01) | DRG 194 ==
LOC: EDBD 23:43 → ER 23:43 → TELE 03-01 04:47 → TELE-WESTW 03-02 23:30
PROVIDERS: ADMIT Nurse Practitioner; ATTEND Hospitalist
DX: I11.0 Hypertensive heart disease with heart failure (principal); I21.A1 Myocardial infarction type 2; I27.20 Pulmonary hypertension, unspecified; I50.43 Acute on chronic combined systolic (congestive) and diastolic (congestive) heart failure; N17.9 Acute kidney failure, unspecified; I42.0 Dilated cardiomyopathy; E07.9 Disorder of thyroid, unspecified; E78.5 Hyperlipidemia, unspecified; F12.90 Cannabis use, unspecified, uncomplicated; L03.119 Cellulitis of unspecified part of limb; T50.905A Adverse effect of unspecified drugs, medicaments and biological substances, initial encounter; F19.10 Other psychoactive substance abuse, uncomplicated; F15.90 Other stimulant use, unspecified, uncomplicated; F17.210 Nicotine dependence, cigarettes, uncomplicated; Z20.822 Contact with and (suspected) exposure to COVID-19; I25.10 Atherosclerotic heart disease of native coronary artery without angina pectoris; I25.5 Ischemic cardiomyopathy; I42.7 Cardiomyopathy due to drug and external agent; J44.9 Chronic obstructive pulmonary disease, unspecified; K40.90 Unilateral inguinal hernia, without obstruction or gangrene, not specified as recurrent; Z91.14 Patient's other noncompliance with medication regimen; Z91.199 Patient's noncompliance with other medical treatment and regimen due to unspecified reason; Z98.61 Coronary angioplasty status; Y92.89 Other specified places as the place of occurrence of the external cause; I25.2 Old myocardial infarction; Z79.899 Other long term (current) drug therapy
CPT/HCPCS: 36415; 71045; 80048; 80053; 83735; 83880; 84484; 85025; 85610; 85730; 87426; 93005; 93306; G0378; J2405